=== PATIENT | female | born 1995 | race Caucasian/White ===

== ENCOUNTER 2020-05-16 04:53 | Outpatient (REF) | payer MEDICAID, SELFPAY ==
[2020-05-16 06:59] LABS: SARS COV2 PCR INHOUSE NEGATIVE (Negative)
== END 2020-05-16 04:54 | disposition home or self-care (01) ==
LOC: HO.LAB 04:53
PROVIDERS: Visit Provider Internal Medicine
DX: Z20.828 Contact with and (suspected) exposure to other viral communicable diseases (principal)
CPT/HCPCS: 87635

== ENCOUNTER 2020-05-21 06:13 | Outpatient (REF) | payer MEDICAID, SELFPAY ==
[2020-05-21 06:31] LABS: COVID-19 Test Negative (Negative)
== END 2020-05-21 06:14 | disposition home or self-care (01) ==
LOC: HO.LAB 06:13
PROVIDERS: Visit Provider Internal Medicine
DX: Z20.828 Contact with and (suspected) exposure to other viral communicable diseases (principal)
CPT/HCPCS: 87635

== ENCOUNTER 2020-06-12 14:10 | Outpatient (REF) | payer MEDICAID, SELFPAY ==
--- NOTE | 2020-06-12 | US_ITS ---
EXAMINATION: ULTRASOUND TRANSVAGINAL, PELVIC COMPLETE CLINICAL INFORMATION: Right lower quadrant pain. COMPARISON: Pelvic ultrasound dated 08/20/2016. TECHNIQUE: Multiple 2-D grayscale and color Doppler transabdominal and transvaginal pelvic ultrasound images were obtained. FINDINGS: Uterus: Anteverted/anteflexed measuring 11.7 x 4.8 x 6.5 cm with a volume of 191 cc. The endometrial stripe measures up to 0.8 cm without focal abnormality. The cervix is unremarkable. Mild free fluid is seen in the cul-de-sac. Right ovary: 3.4 x 2.1 x 2.9 cm. Several small anechoic follicles are seen. Color Doppler showed no abnormal vascular flow. Left ovary: 4.2 x 2.4 x 3.3 cm. Several small anechoic follicles are seen. An anechoic cyst measures 2.1 cm. Color Doppler interrogation showed no abnormal vascular flow. US/US transvaginal IMPRESSION: Unremarkable pelvic ultrasound. A causative abnormality for the patient's right lower quadrant pain was not visualized.
--- NOTE | 2020-06-12 | US_ITS ---
EXAMINATION: ULTRASOUND TRANSVAGINAL, PELVIC COMPLETE CLINICAL INFORMATION: Right lower quadrant pain. COMPARISON: Pelvic ultrasound dated 08/20/2016. TECHNIQUE: Multiple 2-D grayscale and color Doppler transabdominal and transvaginal pelvic ultrasound images were obtained. FINDINGS: Uterus: Anteverted/anteflexed measuring 11.7 x 4.8 x 6.5 cm with a volume of 191 cc. The endometrial stripe measures up to 0.8 cm without focal abnormality. The cervix is unremarkable. Mild free fluid is seen in the cul-de-sac. Right ovary: 3.4 x 2.1 x 2.9 cm. Several small anechoic follicles are seen. Color Doppler showed no abnormal vascular flow. Left ovary: 4.2 x 2.4 x 3.3 cm. Several small anechoic follicles are seen. An anechoic cyst measures 2.1 cm. Color Doppler interrogation showed no abnormal vascular flow. US/US pelvic complete IMPRESSION: Unremarkable pelvic ultrasound. A causative abnormality for the patient's right lower quadrant pain was not visualized.
== END 2020-06-12 14:11 | disposition home or self-care (01) ==
LOC: HO.US 14:10
DX: R10.31 Right lower quadrant pain (principal); N89.8 Other specified noninflammatory disorders of vagina
CPT/HCPCS: 76830; 76856

== ENCOUNTER 2020-06-24 06:46 | Outpatient (REF) | payer MEDICAID, SELFPAY ==
[2020-06-24 07:13] LABS: COVID-19 Test Positive (Negative)
== END 2020-06-24 06:47 | disposition home or self-care (01) ==
LOC: HO.EMPCOV 06:46
PROVIDERS: PCP Nurse Practitioner Primary Care; Visit Provider Internal Medicine
DX: Z20.828 Contact with and (suspected) exposure to other viral communicable diseases (principal)
CPT/HCPCS: 87635; C9803

== ENCOUNTER 2020-10-29 01:50 | Outpatient (REF) | payer MEDICAID, SELFPAY ==
[2020-10-29 02:17] LABS: Glucose Urine UA NEG (NEG); Leukocyte Esterase Urine NEG (NEG); Nitrite Urine NEG (NEG); PH 6.5 (5.0-8.0); Specific Gravity - Urine 1.025 (1.005-1.025); Urine Blood 1+ (NEG); Urine Ketones NEG (NEG); Urine Protein NEG (NEG-TRACE)
[2020-10-29 02:18] LABS: Appearance Urine CLOUDY; Color Urine YELLOW
[2020-10-29 02:35] LABS: Bacteria Urine 4+ /LPF; Mucus Urine 2+ /LPF; Squamous Epithelial Cell Urine TRACE /LPF; UACC CULT YES
== END 2020-10-29 01:51 | disposition home or self-care (01) ==
LOC: HO.LAB 01:50
PROVIDERS: PCP Nurse Practitioner Primary Care; Visit Provider Emergency Medicine Emergency Medical Services
DX: N39.0 Urinary tract infection, site not specified (principal)
CPT/HCPCS: 81001; 87086; 87088; 87186

== ENCOUNTER 2021-04-21 13:36 | Outpatient (REF) | payer MEDICAID, SELFPAY | END 2021-04-21 13:37 | disposition home or self-care (01) | LOC: HO.LAB 13:36 | PROVIDERS: PCP Nurse Practitioner Primary Care | DX: N39.0 Urinary tract infection, site not specified (principal) | CPT/HCPCS: 87086; 87088; 87186; 99202 ==

== ENCOUNTER 2021-05-26 05:29 | Outpatient (REF) | payer MEDICAID, SELFPAY ==
[2021-05-26 05:55] LABS: COVID-19 Test Negative (Negative); IDNOW Serial# 9DD0AD1C
== END 2021-05-26 05:30 | disposition home or self-care (01) ==
LOC: HO.LAB 05:29
PROVIDERS: Visit Provider Internal Medicine
DX: Z20.822 Contact with and (suspected) exposure to COVID-19 (principal)
CPT/HCPCS: 36415; 87635

== ENCOUNTER 2021-08-13 06:10 | Outpatient (REF) | payer OTHER, SELFPAY ==
[2021-08-13 06:41] LABS: COVID-19 Test Negative (Negative); IDNOW Serial# 9DD0AD1C
== END 2021-08-13 06:11 | disposition home or self-care (01) ==
LOC: HO.LAB 06:10
PROVIDERS: Visit Provider Internal Medicine
DX: Z20.822 Contact with and (suspected) exposure to COVID-19 (principal)
CPT/HCPCS: 87635

== ENCOUNTER 2023-09-04 22:52 | Outpatient (REF) | payer MEDICAID, SELFPAY ==
[2023-09-04 23:32] LABS: COVID-19 Test Positive (Negative); IDNOW Serial# 08D9AD1C; IDNOW Serial# 152EDE1D; Influenza A Negative (Negative); Influenza B2 Negative (Negative)
== END 2023-09-04 22:53 | disposition home or self-care (01) ==
LOC: HO.LAB 22:52
PROVIDERS: Visit Provider Internal Medicine
DX: R50.9 Fever, unspecified (principal)
CPT/HCPCS: 87502; 87635

== ENCOUNTER 2024-10-02 14:16 | Outpatient (REF) | payer MEDICAID, SELFPAY ==
--- OUTSIDE RECORDS SUMMARY | 2024-10-02 16:19 | XMS_ITS | Encounter Summary ---
Author Organization [facility] Address [address] [facility] [address] 7t [place] [address] Care Team Providers Care Fourth Hand Name Role Phone Eden Vallejo Primary Care Provider [phone] Encounter Details Date Type Department Care Team (Latest Contact Info) Description 10/02/2024 Travel Social History Tobacco Use Types Packs/Day Years Used Date Smoking Tobacco: Never Smokeless Tobacco: Never Alcohol Use Standard Drinks/Week Comments Not Currently 0 (1 standard drink = 0.6 oz pur e alcohol) Comments No Sex and Gender Information Value Date Recorded Sex Assigned at Female 05/25/2022 10:17 AM EDT Legal Sex Female 10:17 AM EDT Gender Identity Female 05/25/2022 10:17 AM EDT Sexual Orientation Straight 05/25/2022 10 :17 AM EDT documented as of this encounter Plan of Treatment Upcoming Encounters Date Type Department Care Team (Late st Contact Info) Description 12/25/2024 11:30 AM EDT Office Visit [facility] MEDICINE [address] [place] [address] Kimber Sahni CNM [address] [place] [address] documented as of this encounter Visit Diagnoses Not on filedocumented in this encounter Care Teams Fourth Hand Relationship Specialty Start Date End Date Eden Vallejo ANP [address] [place] [address] PCP - General Family Medicine 01/12/20 documented as of this encounter
--- OUTSIDE RECORDS SUMMARY | 2024-10-02 16:19 | XMS_ITS | Encounter Summary ---
Author Organization [facility] Address [address] [facility] 7t [place] [address] Care Team Providers Care Roof Bolter Operator Name Role Phone Eden Vallejo Primary Care Provider [phone] Encounter Details Date Type Department Care Team (Latest Contact Info) Description 09/14/2024 Travel Social History Tobacco Use Types Packs/Day Years Used Date Smoking Tobacco: Never Smokeless Tobacco: Never Alcohol Use Standard Drinks/Week Comments Yes 0 (1 standard drink = 0.6 oz pur e alcohol) Comments Unknown Sex and Gender Information Value Date Recorded Sex Assigned at Female 05/25/2022 10:17 AM EDT Legal Sex Female 10:17 AM EDT Gender Identity Female 05/25/2022 10:17 AM EDT Sexual Orientation Straight 05/25/2022 10 :17 AM EDT documented as of this encounter Plan of Treatment Upcoming Encounters Date Type Department Care Team (Late st Contact Info) Description 12/25/2024 11:30 AM EDT Office Visit [facility] MEDICINE [address] [place] [address] Kimber Sahni CNM [address] [place] [address] documented as of this encounter Visit Diagnoses Not on filedocumented in this encounter Care Teams Roof Bolter Operator Relationship Specialty Start Date End Date Eden Vallejo ANP [address] [place] [address] PCP - General Family Medicine 01/12/20 documented as of this encounter
--- OUTSIDE RECORDS SUMMARY | 2024-10-02 16:19 | XMS_ITS | Clinical Summary ---
Author Organization [employer] Address [address] [facility] 7t [place] [address] Care Team Providers Care Office Manager Receptionist Name Role Phone Eden Vallejo Primary Care Provider [phone] Allergies Active Allergy Reactions Criticality Noted Date Comments Promethazine 10/21/2016 Medications albuterol 108 (90 Base) MCG/ACT inhaler Inhale 2 puffs every 4 (four) hours. 0 Active cholecalciferol (Vitamin D-3) 1.25 MG (31728 UT) capsule Take 1 capsule once per week for 8-12 weeks 0 Active norelgestromin- ethinyl estradiol (Xulane) 150-35 MCG/24HR Apply 1 patch each week for 3 weeks, then have no patch for 1 week. Repeat 3 patch 3 5 Active doxycycline (Vibra-Tabs) 100 MG tablet take 1 tablet by oral route 2 times every day for 7 days 2 10/03/19 25 Discontinu ed(Therapy completed) doxycycline (Vibra-Tabs) 100 MG tablet Take 100 mg by mouth 2 times daily. 2 10/03/19 25 Discontinu ed(Therapy completed) fluconazole (Diflucan) 150 MG tablet take 1 tablet by oral route once, repeat if needed in 72 hours 2 10/03/19 25 Discontinu ed(Therapy completed) fluconazole (Diflucan) 150 MG tablet TAKE 1 TABLET BY ORAL ROUTE ONCE, REPEAT IF NEEDED IN 72 HOURS 2 10/03/19 25 Discontinu ed(Therapy completed) nitrofurantoin, macrocrystal-mo nohydrate, (Macrobid) 100 MG capsuleIndicati ons:Urinary frequency 100 mg 2 times a day x 5 days 10 capsule 3 10/03/19 25 Discontinu ed(Therapy completed) Active Problems No known active problems Encounters Date Type Department Care Team Description 10/02/2024 1:15 PM EDT Procedure Visit [facility] MEDICINE [address] [place] [address] Kimber Sahni CNM Cervical cancer screening (Primary Dx); Menorrhagia with regular cycle; Screening examination for venereal disease 10/02/2024 Travel 09/14/2024 Travel 08/25/2024 Telephone [facility] MEDICINE [address] [place], [place] [phone] Eden Vallejo ANP Appointment Request from Last 3 Months Immunizations Name Administration Dates Next Due DTaP 03/27/1995, 4,1993,07/29,1993 HPV, Quadrivalent 04/12/2014,08/16/2009 Hep B, Adolescent or Pediatric 1993,1993,1993 Hep B, adult 11/25/2018,06/24/2018,05/24/2018 Hib (HbOC) 06/26/1994, 4,1993,05/27 IPV 03/27/1995, 4,1993,05/27 Influenza injectable quadriv alent IIV4 with preservative 05/18/2018,05/18/2016 Influenza injectable quadriv alent preservative free 05/30/2020,05/26/2020,05/17/2019 Influenza, IIV3, injectable 04/12/2014,1 08/11/2004,05/29/2004,05/14 Influenza, intradermal, quad rivalent, preservative free 05/21/2017 MMR 03/27/1995,04/08/1994 Meningococcal MPSV4 06/10/2006 Moderna Covid-19 Vaccine 12+ 07/07/2021,06/09/20 21 TD (adult), 2 Lf tetanus tox oid, preservative free, adsorbed 08/25/2005 Tdap 11/22/2017,06/22/2017 Social History Tobacco Use Types Packs/Day Years Used Date Smoking Tobacco: Never Smokeless Tobacco: Never Tobacco Cessation:Counseling Given: Not Answered Alcohol Use Standard Drinks/Week Comments Not Currently 0 (1 standard drink = 0.6 oz pur e alcohol) Comments No Sex and Gender Information Value Date Recorded Sex Assigned at Female 05/25/2022 10:17 AM EDT Legal Sex Female 10:17 AM EDT Gender Identity Female 05/25/2022 10:17 AM EDT Sexual Orientation Straight 05/25/2022 10 :17 AM EDT Last Filed Vital Signs Vital Sign Reading Time Taken Comments Blood Pressure 125/80 10/02/2024 1:20 PM EDT Pulse 75 10/02/2024 1:20 PM EDT Temperature 36.5 ??C (97.7 ??F) 10/02/2024 1:20 PM ED T Respiratory Rate 20 10/02/2024 1:20 PM EDT Oxygen Saturation 99% 10/02/2024 1:20 PM EDT Inhaled Oxygen Concentration - - Weight 61.5 kg (135 lb 9.6 oz) 10/02/2024 1:20 P M EDT Height 160 cm (5' 3 ) 10/02/2024 1:20 PM EDT Body Mass Index 24.02 10/02/2024 1:20 PM EDT Plan of Treatment Upcoming Encounters Date Type Department Care Team (Late st Contact Info) Description 12/25/2024 11:30 AM EDT Office Visit [facility] MEDICINE [address] [place] [address] Kimber Sahni CNM [address] [place] [address] Health Maintenance Due Date Last Done Comments Depression Screening 1993 SDOH Screening 1993 Alcohol/Substance Use Screening 2005 HPV Vaccines (3 - 3-dose series) 07/05/2014 04/12/2014, 08/16/2009 HPV/Cotest 2023 Cervical Cancer Screening 09/06/2023 Pap Smear 09/06/2023 09/06/2020 COVID-19 Vaccine ( season) 2024 07/07/2021, 06/09/2021 Influenza Vaccine (#1) 2024 , 05/26/2020, 05/17/2019, Additional history exists Family Planning (PISQ) 10/02/2025 10/02/2024 Tobacco Screening 10/02/2025 10/02/2024 DTaP/Tdap/Td Vaccines (8 - Td or Tdap) 11/23/2027 11/22/2017, 06/22/2017, 08/25/2005, Additional history exists Zoster Vaccines (1 of 2) 2043 RSV Patients and Patients Aged 60 years or older (1 - 1-dose 75+ series) 2068 HIB Vaccines Completed 06/26/1994, 03/1994, 1993, Additional history exists IPV Vaccines Completed 03/27/1995, 03/1994, 1993, Additional history exists Meningococcal Vaccine Aged Out 06/10/2006 No hussein lacy eligible based on patient's age to complete this topic Hepatitis B Vaccines Completed 11/25/2018, 06/24/2018, 05/24/2018, Additional history exists HIV Screening Completed 09/17/2021, 10/2020, 01/31/2020 Hepatitis C Screening Completed 09/17/2021 Hepatitis A Vaccines Aged Out No long er eligible based on patient's age to complete this topic Pneumococcal Vaccine: Pediatrics (0 to 5 Years) and At-Risk Patients (6 to 49) Years) Aged Out No longer eligible based on patient's age to complete this topic RSV under 20 months Aged Out No longe r eligible based on patient's age to complete this topic Rotavirus Vaccines Aged Out No longer eligible based on patient's age to complete this topic Procedures Procedure Name Priority Date/Time Associated Diagnosis Comments ZZZ HISTORICAL HEPATITIS C AB W/REFL TO HCV RNA, QN, PCR Routine 09/17/2021 11:35 AM EST HIV 1/2 ANTIGEN/ANTIBODY, FOURTH GENERATION W/RFL Routine 09/17/2021 11:35 AM EST THINPREP PAP Routine 09/06/2020 12:00 AM EST from Last 3 Months or Most Recently Relevant to Health Maintenance Results * HEPATITIS C AB W/REFL TO HCV RNA, QN, PCR (09/17/2021 11:35 AM EST) HEPATITIS C ANTIBODY NON-REACT JOAO NON-REACT JOAO [facility] INDEX 0.03 <1.00 [facility] Comment: ?? HCV antibody was non-reactive. There is no laboratory ?? evidence of HCV infection. ?? In most cases, no further action is required. However, if recent HCV exposure is suspected, a test for HCV RNA (test code 60561) is suggested. ?? For additional information please refer to http://[employer]/faq/UAW30q1 (This link is being provided for informational/ educational purposes only.) ?? 09/17/2021 11:3 5 AM EST Pallavi MORALESP HISTORICAL/NON ORDERABLE LABS Final Result [facility] [address] * HIV 1/2 ANTIGEN/ANTIBODY,FOURTH GENERATION W/RFL (09/17/2021 11:35 AM EST) HIV-1/2 ANTIGEN AND ANTIBODIES, 4TH GENERATION W/ REFLEX NON-REACT JOAO NON-REACT JAOO [facility] Comment: HIV-1 antigen and HIV-1/HIV-2 antibodies were not detected. There is no laboratory evidence of HIV infection. ?? PLEASE NOTE: This information has been disclosed to you from records whose confidentiality may be protected by state law. ??If your state requires such protection, then the state law prohibits you from making any further disclosure of the information without the specific written consent of the person to whom it pertains, or as otherwise permitted by law. A general authorization for the release of medical or other information is NOT sufficient for this purpose. ? For additional information please refer to http://[employer]/faq/WLS494 (This link is being provided for informational/ educational purposes only.) ? The performance of this assay has not been clinically validated in patients less than 2 years old. ?? 09/17/2021 11:3 5 AM EST Pallavi Hu [address] REFEREE LAB BLOOD ORDERABLES Final Res ult Performing Organization Address [facility] Co de Phone Number [facility] [address] * THINPREP PAP (09/06/2020 12:00 AM EST) Clinical Information: None given [facility] COMMENT [facility]MENT [facility] Comment: EXPLANATORY NOTE: ? The Pap is a screening test for cervical cancer. It is ?? not a diagnostic test and is subject to false negative ?? and false positive results. It is most reliable when a ?? satisfactory sample, regularly obtained, is submitted ?? with relevant clinical findings and history, and when ?? the Pap result is evaluated along with historic and ?? current clinical information. ?? Account Associate : SEE COMMENT [facility] Comment: MPG, CT(ASCP) CT screening location: [address] ??[id number] Interpretation/R esult: Negative for intraepithelial lesion or malignancy. [facility] [facility] LMP: NONE [facility] Prev. BX: NONE [facility] Prev. PAP: NONE [facility] SOURCE: None given [facility] Statement Of Adequacy: SEE COMMENT [facility] Comment: Satisfactory for evaluation. Endocervical/transformation zone component present. Age and/or menstrual status not provided 09/06/2020 Eden ZAMORANO LAB PATHOLOGY ORDERABLES Final R esult Performing Organization Address [facility] Co de Phone Number [facility] [address] from Last 3 Months or Most Recently Relevant to Health Maintenance Insurance [employer] Care Teams Office Manager Receptionist Relationship Specialty Start Date End Date Eden Vallejo ANP [address] [place] [phone] PCP - General Family Medicine 01/12/20
--- OUTSIDE RECORDS SUMMARY | 2024-10-02 16:19 | XMS_ITS | Encounter Summary ---
Author Organization [employer] Address [address] [place] [address] 7t [place] [address] Care Team Providers Care Back Order Clerk Name Role Phone Genevieve Eden ZAMORANO Primary Care Provider [phone] Reason for Referral * Imaging (Urgent) - Authorized Specialty Diagnoses / Procedures Referred By Contac t Referred To Contact Radiology Diagnoses Menorrhagia with regular cycle Procedures Us Pelvis complete Kimber Sahni CNM [address] [place] [address] Phone: tel: fax: [address] Phone: tel: fax: Referral ID Status Reason Start Date Expiration Date V isits Requested Visits Authorized [id number] Authorized 10/02/2024 10/02/2025 1 1 * Imaging (Urgent) - Authorized Specialty Diagnoses / Procedures Referred By Contac t Referred To Contact Radiology Diagnoses Menorrhagia with regular cycle Procedures US Pelvis Transvaginal Kimber Sahni CNM [address] [place] [address] Phone: tel: fax: [address] Phone: tel: fax: Referral ID Status Reason Start Date Expiration Date V isits Requested Visits Authorized [id number] Authorized 10/02/2024 10/02/2025 1 1 Reason for Visit * Reason Comments Gynecologic Exam Encounter Details Date Type Department Care Team (Latest Contact Info) Description 10/02/2024 1:15 PM EDT Procedure Visit [facility] MEDICINE [address] [place] [address] Kimber Sahni CNM [address] [place] [address] Cervical cancer screening (Primary Dx); Menorrhagia with regular cycle; Screening examination for venereal disease Social History Tobacco Use Types Packs/Day Years [...] AM EDT documented as of this encounter Last Filed Vital Signs Vital Sign Reading [...] Mass Index 24.02 10/02/2024 1:20 PM EDT documented in this encounter Progress Notes * Kimber Sahni CNM - 10/02/2024 1:15 PM EDT Subjective Patient ID: Marino Martin is a 29 y.o. female who presents for pap Last visit with vt in 2020. Pap NIL 2020. History of recurrent UTIs, no recent UTIs. No vaginal/urinary symptoms. Has tubal ligation, happy with method. Notes heavier menses over past year, can soak pads/tampons in less than a hour. Monthly menses x 5-7 days. Heavy x 4 days. No intermenstrual bleeding. Notes occasional LLQ cramping, not correlated with menses. Pain resolves with ibuprofen. Ibuprofen not helpful for heavy menses. Notes occasional nosebleeds, no easy bruising or bleeding gums. Would like to discuss control to help with menses. No contraindications to any method. 1 AMAB partner x 2y, no safety concerns. Doesn't think she had STI testing with partner, agrees to pap based S TI testing today. Review of Systems HENT: Positive for nosebleeds. Genitourinary: Positive for menstrual problem. Negative for dyspareunia, dysuria, frequency, genital sores, hematuria, pelvic pain, urgency, vaginal bleeding, vaginal discharge and vaginal pain. No abnormal pap, no breast pain, no breast mass, no nipple discharge Hematological: Negative for adenopathy. Does not bruise/bleed easily. Objective BP 125/80 (BP Location: Left arm, Patient Position: Sitting, BP Cuff Size: Adult) Pulse 75 Temp97.7 ??F (36.5 ??C) (Temporal) Resp 20 Ht 5' 3 (1.6 m) Wt 135 lb 9.6 oz (61.5 kg) LMP 09/18/2024 (Exact Date) SpO2 99% BMI 24.02 kg/m?? Physical Exam Constitutional: Appearance: Normal appearance. Chest: Breasts: Right: Normal. No swelling, bleeding, inverted nipple, mass, nipple discharge, skin change or tenderness. Left: Normal. No swelling, bleeding, inverted nipple, mass, nipple discharge, skin change or tenderness. Genitourinary: General: Normal vulva. Labia: Right: No rash, tenderness, lesion or injury. Left: No rash, tenderness, lesion or injury. Vagina: Normal. No signs of injury and foreign body. No vaginal discharge, erythema, tenderness, bleeding or lesions. Cervix: No cervical motion tenderness, discharge, friability, lesion, erythema, cervical bleeding or eversion. Uterus: Normal. Not enlarged and not tender. Adnexa: Right adnexa normal. Right: No mass, tenderness or fullness. Left: Fullness present. No mass or tenderness. Comments: Slight fullness LLQ Lymphadenopathy: Upper Body: Right upper body: No supraclavicular or axillary adenopathy. Left upper body: No supraclavicular or axillary adenopathy. Neurological: Mental Status: She is alert. Psychiatric: Mood and Affect: Mood normal. Behavior: Behavior normal. Assessment/Plan Diagnoses and all orders for this visit: Cervical cancer screening - Pap Smear Cotest today, repeat 5 years if normal/HPV negative. Will contact with results. Menorrhagia with regular cycle - CBC; Future - TSH W/Reflex to FT4; Future - Iron And Total Iron Binding Capacity; Future - Ferritin; Future - US Pelvis Transvaginal; Future - Us Pelvis complete; Future New onset and worsening over the past year. Will check ultrasound and labs and contact with results. Discussed options to help lighten menses. Doesn't want a daily pill, interested in patch. Rx sent in. Side effects and danger signs reviewed. Patch check 3 months, but call if any concerns before then. Screening examination for venereal disease - STI testing add on (NG, CT, Trich) Pap based STI testing ordered. Other orders - norelgestromin-ethinyl estradiol (Xulane) 150-35 MCG/24HR; Apply 1 patch each week for 3 weeks, then have no patch for 1 week. Repeat documented in this encounter Plan of Treatment Upcoming Encounters Date Type Department Care Team (Late st Contact Info) Description 12/25/2024 11:30 AM EDT Office Visit [facility] MEDICINE [address] [place] [address] Kimber Sahni CNM [address] [place] [address] Scheduled Orders Name Type Priority Associated Diagnoses Orde r Schedule Pap Smear Pathology and Cytology Routine Cervical cancer screening Ordered: 10/02/2024 CBC Lab Routine Menorrhagia with regular cycle Expected: 10/02/2024 (Approximate), Expires: 10/02/2025 TSH W/Reflex to FT4 Lab Routine Menorrhagia with regular cycle Expected: 10/02/2024 (Approximate), Expires: 10/02/2025 Iron And Total Iron Binding Capacity Lab Routine Menorrhagia with regular cycle Expected: 10/02/2024, Expires: 10/02/2025 Ferritin Lab Routine Menorrhagia with regular cycle Expected: 10/02/2024, Expires: 10/02/2025 US Pelvis Transvaginal Imaging Urgent Menorrhagia with regular cycle Expected: 10/02/2024, Expires: 10/02/2025 Us Pelvis complete Imaging Urgent Menorrhagia with regular cycle Expected: 10/02/2024, Expires: 10/02/2025 STI testing add on (NG, CT, Trich) Pathology and Cytology Routine Screening examination for venereal disease Ordered: 10/02/2024 documented as of this encounter Visit Diagnoses Diagnosis Cervical cancer screening- Primary Screening for malignant neoplasm of the cervix Menorrhagia with regular cycle Screening examination for venereal disease documented in this encounter Care Teams Back Order Clerk Relationship Specialty Start Date End Date Eden Vallejo ANP [address] [place] [phone] PCP - General Family Medicine 01/12/20 documented as of this encounter
--- OUTSIDE RECORDS SUMMARY | 2024-10-02 16:19 | XMS_ITS | Encounter Summary ---
Author Organization [employer] Address [address] [place] [address] 7t [place] [address] Care Team Providers Care Marine Cargo Specialist Name Role Phone Eden Vallejo Primary Care Provider [phone] Reason for Visit * Reason Onset Date Comments Appointment Request 08/25/2024 Encounter Details Date Type Department Care Team (Late st Contact Info) Description 08/25/2024 Telephone [facility] MEDICINE [address] [place] [phone] Eden Vallejo ANP [address] [place], [place] [phone] Appointment Request Social History Tobacco Use Types Packs/Day Years [...] AM EDT documented as of this encounter Miscellaneous Notes * Telephone Encounter - Pradeep Martínez - 08/25/2024 12:51 PM EST Tc from pt requesting an appt for PAP smear with Kaitlyn. PT Contact: [phone] documented in this encounter Plan of Treatment Upcoming Encounters Date Type Department Care Team (Late Contact Info) Description 12/25/2024 11:30 AM EDT Office Visit [facility] MEDICINE [address] [place] [address] Kimber Sahni CNM [address] [place] [address] documented as of this encounter Visit Diagnoses Not on filedocumented in this encounter Care Teams Marine Cargo Specialist Relationship Specialty Start Date End Date Eden Vallejo ANP [address] [place] [address] PCP - General Family Medicine 01/12/20 documented as of this encounter
== END 2024-10-02 14:17 | disposition home or self-care (01) ==
LOC: HO.HHCL 14:16
PROVIDERS: Visit Provider Advanced Practice Midwife
DX: Z13.89 Encounter for screening for other disorder (principal)

== ENCOUNTER 2024-10-02 16:49 | Outpatient (REF) | payer MEDICAID, SELFPAY ==
[2024-10-02 16:20] LABS: Hematocrit 29.4 % (37.0-47.0); Hemoglobin 8.9 g/dl (12.0-16.0); Mean Corpuscular HGB Conc 30.3 g/dl (31.0-35.0); Mean Corpuscular Hemoglobin 22.7 pg (27.0-33.0); Mean Platelet Volume 10.3 fL (9.4-12.3); Platelet Count 270 X10*3/uL (160-400); Red Blood Count 3.92 X10*6/uL (4.20-5.50); Red Cell Distribution Width 14.5 % (11.0-16.0); White Blood Count 3.9 X10*3/uL (4.8-10.8)
[2024-10-02 16:42] LABS: Iron 13 mcg/dL (30-160); Percent Iron Saturation 4 % (15-50); Total Iron Binding Capacity 350 mcg/dL (228-428); Unsaturated Iron Binding 337 ug/dL
[2024-10-02 16:58] LABS: Ferritin 3 ng/mL (10-122); TSH reflex Free T4 1.32 uIU/mL (0.32-4.0)
--- OUTSIDE RECORDS SUMMARY | 2024-10-02 18:18 | XMS_ITS | Encounter Summary ---
Author Organization [facility] Address [address] [facility] 7t [place] [address] Care Team Providers Care Industrial Engineering Analyst Name Role Phone Eden Vallejo Primary Care Provider [phone] Encounter Details Date Type Department Care Team [...] Description 12/25/2024 11:30 AM EDT Office Visit [facility] MEDICINE [address] [place] [address] Kimber Sahni CNM [address] [place] [address] documented as of this encounter Visit Diagnoses Not on filedocumented in this encounter Care Teams Industrial Engineering Analyst Relationship Specialty Start Date End Date Eden Vallejo ANP [address] [place] [address] PCP - General Family Medicine 01/12/20 documented as of this encounter
--- OUTSIDE RECORDS SUMMARY | 2024-10-02 18:18 | XMS_ITS | Encounter Summary ---
Author Organization [employer] Address [address] [place] [address] 7t [place] [address] Care Team Providers Care Recruitment Manager Name Role Phone Eden Vallejo Primary Care Provider [phone] Reason for Visit * Reason Onset Date Comments Appointment Request 08/25/2024 Encounter Details Date Type Department Care Team (Late st Contact Info) Description 08/25/2024 Telephone [facility] [address] [place] [address] [phone] Eden Vallejo ANP [address] [place], [place] [phone] Appointment Request Social History Tobacco Use Types [...] for PAP smear with Kaitlyn. PT Contact: [phone] documented in this encounter Plan of Treatment Upcoming Encounters Date Type Department Care Team (Late Contact Info) Description 12/25/2024 11:30 AM EDT Office Visit [facility] [address] [place] [address] Kimber Sahni CNM [address] [place] [address] documented as of this encounter Visit Diagnoses Not on filedocumented in this encounter Care Teams Recruitment Manager Relationship Specialty Start Date End Date Eden Vallejo ANP [address] [place] [address] PCP - General Family Medicine 01/12/20 documented as of this encounter
--- OUTSIDE RECORDS SUMMARY | 2024-10-02 18:18 | XMS_ITS | Encounter Summary ---
Author Organization [facility] Address [address] [facility] 7t [place] [address] Care Team Providers Care Rug Washer Name Role Phone Eden Vallejo Primary Care Provider [phone] Encounter Details Date Type Department Care Team [...] Description 12/25/2024 11:30 AM EDT Office Visit [facility] [address] [place] [address] Kimber Sahni CNM [address] [place] [address] documented as of this encounter Visit Diagnoses Not on filedocumented in this encounter Care Teams Rug Washer Relationship Specialty Start Date End Date Eden Vallejo ANP [address] [place] [address] PCP - General Family Medicine 01/12/20 documented as of this encounter
--- OUTSIDE RECORDS SUMMARY | 2024-10-02 18:18 | XMS_ITS | Encounter Summary ---
Author Organization [employer] Address [address] [place] [address] 7t [place] [address] Care Team Providers Care Merchandise Appraiser Name Role Phone Genevieve Eden ZAMORANO Primary Care Provider [phone] Reason for Referral * Imaging (Urgent) - Authorized Specialty Diagnoses / Procedures Referred By Contac t Referred To Contact Radiology Diagnoses Menorrhagia with regular cycle Procedures Us Pelvis complete Kimber Sahni CNM [address] [place] [address] Phone: tel: fax: [address] Phone: tel: fax: Referral ID Status Reason Start Date Expiration Date V isits Requested Visits Authorized [id number] Authorized 10/02/2024 10/02/2025 1 1 * Imaging (Urgent) - Authorized Specialty Diagnoses / Procedures Referred By Contac t Referred To Contact Radiology Diagnoses Menorrhagia with regular cycle Procedures US Pelvis Transvaginal Kimber Sahni CNM [address] [place] [address] Phone: tel: fax: [address] Phone: tel: fax: Referral ID Status Reason Start Date Expiration Date V isits Requested Visits Authorized [id number] Authorized 10/02/2024 10/02/2025 1 1 Reason for Visit * Reason Comments Gynecologic Exam Encounter Details Date Type Department Care Team (Latest Contact Info) Description 10/02/2024 1:15 PM EDT Procedure Visit [facility] [address] [place] [address] Kimber Sahni CNM [address] [place] [address] Cervical cancer screening (Primary Dx); Menorrhagia with [...] who presents for pap Last visit with ut in 2020. Pap NIL 2020. History of [...] Description 12/25/2024 11:30 AM EDT Office Visit [facility] [address] [place] [address] Kimber Sahni CNM [address] [place] [address] Scheduled Orders Name Type Priority Associated Diagnoses Orde r Schedule Pap Smear Pathology and Cytology Routine Cervical cancer screening Ordered: 10/02/2024 US Pelvis Transvaginal Imaging Urgent Menorrhagia with regular cycle Expected: 10/02/2024, Expires: 10/02/2025 Us Pelvis complete Imaging Urgent Menorrhagia with regular cycle Expected: 10/02/2024, Expires: 10/02/2025 STI testing add on (NG, CT, Trich) Pathology and Cytology Routine Screening examination for venereal disease Ordered: 10/02/2024 documented as of this encounter Procedures Procedure Name Priority Date/Time Associated Diagnosis Comments TSH W/REFLEX TO FT4 Routine 10/02/2024 2 :19 PM EDT Menorrhagia with regular cycle IRON AND TOTAL IRON BINDING CAPACITY Routine 10/02/2024 2:19 PM EDT Menorrhagia with regular cycle CBC Routine 10/02/2024 2:19 PM EDT Menorrhagia with regular cycle FERRITIN Routine 10/02/2024 2:19 PM EDT Menorrhagia with regular cycle documented in this encounter Results * (ABNORMAL) Ferritin (10/02/2024 2:19 PM EDT) Ferritin 3(L) 10 - 122 ng/mL [facility] Blood Venous blood specimen / Unknown 10/02/2024 2:19 PM EDT 10/02/2024 4:02 PM EDT us Kimber Sahni [facility] BLOOD ORDERABLES Maritza l Result [facility] [address] [place] [phone] * (ABNORMAL) Iron And Total Iron Binding Capacity (10/02/2024 2:19 PM EDT) Iron 13(L) 30 - 160 mcg/dL [facility] Total Iron Binding Capacity 350 228 - 428 mcg/dL [facility] Percent Iron Saturation 4(L) 15 - 50 % [facility] Unsaturated Iron Binding 337 ug/dL [facility] Blood Venous blood specimen / Unknown 10/02/2024 2:19 PM EDT 10/02/2024 4:02 PM EDT [facility] Maritza l Result Performing Organization Address [facility] Co de Phone Number [facility] [address] [place] [phone] * TSH W/Reflex to FT4 (10/02/2024 2:19 PM EDT) [facility] TSH reflex Free T4 1.32 0.32 - 4.0 uIU/mL [facility] Blood Venous blood specimen / Unknown 10/02/2024 2:19 PM EDT 10/02/2024 4:02 PM EDT [facility] LAB BLOOD ORDERABLES Maritza l Result Performing Organization Address [facility] de Phone Number [facility] [address] [place] [phone] * (ABNORMAL) CBC (10/02/2024 2:19 PM EDT) [facility] White Blood Count 3.9(L) 4.8 - 10.8 X10*3/uL [facility] Red Blood Count 3.92(L) 4.20 - 5.50 X10*6/uL [facility] Hemoglobin 8.9(L) 12.0 - 16.0 g/dl [facility] Hematocrit 29.4(L) 37.0 - 47.0 % [facility] Mean Corpuscular Volume 75.0(L) 80.0 - 98.0 fL [facility] Mean Corpuscular Hemoglobin 22.7(L) 27.0 - 33.0 pg [facility] Mean Corpuscular HGB Conc 30.3(L) 31.0 - 35.0 g/dl [facility] Red Cell Distribution Width 14.5 11.0 - 16.0 % [facility] Platelet Count 270 160 - 400 X10*3/uL [facility] Mean Platelet Volume 10.3 9.4 - 12.3 fL [facility] NRBC Pct Auto 0.0 0.0 - 0.2 /100WBC [facility] NRBC Abs Auto 0.000 0.0 - 0.012 X10*3/uL [facility] Blood Venous blood specimen / Unknown 10/02/2024 2:19 PM EDT 10/02/2024 4:02 PM EDT us Kimber Sahni CN LAB BLOOD ORDERABLES Maritza l Result [facility] [address] [place] [phone] documented in this encounter Visit Diagnoses Diagnosis Cervical cancer screening- Primary Screening for malignant neoplasm of the cervix Menorrhagia with regular cycle Screening examination for venereal disease documented in this encounter Care Teams Merchandise Appraiser Relationship Specialty Start Date End Date Eden Vallejo ANP [address] [place] [address] PCP - General Family Medicine 01/12/20 documented as of this encounter
--- OUTSIDE RECORDS SUMMARY | 2024-10-02 18:18 | XMS_ITS | Clinical Summary ---
Author Organization [employer] Address [address] [facility] 7t [place] [address] Care Team Providers Care Rubber Press Tender Name Role Phone Eden Vallejo Primary Care Provider [phone] Allergies Active Allergy Reactions Criticality Noted Date Comments Promethazine 10/21/2016 Medications albuterol 108 (90 Base) MCG/ACT inhaler Inhale 2 puffs every 4 (four) hours. 0 Active cholecalciferol (Vitamin D-3) 1.25 MG (13800 UT) capsule Take 1 capsule once per [...] Description 10/02/2024 1:15 PM EDT Procedure Visit [facility] [address] [place] [address] Kimber Sahni CNM Cervical cancer screening (Primary Dx); Menorrhagia with regular cycle; Screening examination for venereal disease 10/02/2024 Travel 09/14/2024 Travel 08/25/2024 Telephone [facility] [address] [place], [place] [phone] Eden Vallejo ANP Appointment Request from Last [...] Description 12/25/2024 11:30 AM EDT Office Visit [facility] [address] [place] [address] Kimber Sahni CNM [address] [place] [address] Health Maintenance Due Date Last Done Comments [...] Procedure Name Priority Date/Time Associated Diagnosis Comments FERRITIN Routine 10/02/2024 2:19 PM EDT Menorrhagia with regular cycle IRON AND TOTAL IRON BINDING CAPACITY Routine 10/02/2024 2:19 PM EDT Menorrhagia with regular cycle TSH W/REFLEX TO FT4 Routine 10/02/2024 2 :19 PM EDT Menorrhagia with regular cycle CBC Routine 10/02/2024 2:19 PM EDT Menorrhagia with regular cycle ZZZ HISTORICAL HEPATITIS C AB W/REFL TO HCV RNA, QN, PCR Routine 09/17/2021 11:35 AM EST HIV 1/2 ANTIGEN/ANTIBODY, FOURTH GENERATION W/RFL Routine 09/17/2021 11:35 AM EST THINPREP PAP Routine 09/06/2020 12:00 AM EST from Last 3 Months or Most Recently Relevant to Health Maintenance Results * TSH W/Reflex to FT4 (10/02/2024 2:19 PM EDT) TSH reflex Free T4 1.32 0.32 - 4.0 uIU/mL [facility] Blood Venous blood specimen / Unknown 10/02/2024 2:19 PM EDT 10/02/2024 4:02 PM EDT Kimber Sahni [facility] BLOOD ORDERABLES Maritza l Result Performing Organization Address City/[facility]/ZIP Co de Phone Number [facility] [address] [place] [phone] * (ABNORMAL) Iron And Total Iron Binding Capacity (10/02/2024 2:19 PM EDT) Iron 13(L) 30 - 160 mcg/dL [facility] Total Iron Binding Capacity 350 228 - 428 mcg/dL [facility] Percent Iron Saturation 4(L) 15 - 50 % [facility] Unsaturated Iron Binding 337 ug/dL [facility] Blood Venous blood specimen / Unknown 10/02/2024 2:19 PM EDT 10/02/2024 4:02 PM EDT Kimber Sahni [facility] BLOOD ORDERABLES Maritza l Result [facility] [address] [place] [phone] * (ABNORMAL) CBC (10/02/2024 2:19 PM EDT) [facility] White Blood Count 3.9(L) 4.8 - 10.8 X10*3/uL [facility] Red Blood Count 3.92(L) 4.20 - 5.50 X10*6/uL [facility] Hemoglobin 8.9(L) 12.0 - 16.0 g/dl [facility] Hematocrit 29.4(L) 37.0 - 47.0 % [facility] Mean Corpuscular Volume 75.0(L) 80.0 - 98.0 fL [facility] Mean Corpuscular Hemoglobin 22.7(L) 27.0 - 33.0 pg [facility] Mean Corpuscular HGB Conc 30.3(L) 31.0 - 35.0 g/dl [facility] Red Cell Distribution Width 14.5 11.0 - 16.0 % [facility] Platelet Count 270 160 - 400 X10*3/uL [facility] Mean Platelet Volume 10.3 9.4 - 12.3 fL [facility] NRBC Pct Auto 0.0 0.0 - 0.2 /100WBC [facility] NRBC Abs Auto 0.000 0.0 - 0.012 X10*3/uL [facility] Blood Venous blood specimen / Unknown 10/02/2024 2:19 PM EDT 10/02/2024 4:02 PM EDT us Kimber [facility] LAB BLOOD ORDERABLES Maritza l Result [facility] [address] [place] [address] [phone] * (ABNORMAL) Ferritin (10/02/2024 2:19 PM EDT) Ferritin 3(L) 10 - 122 ng/mL [facility] Blood Venous blood specimen / Unknown 10/02/2024 2:19 PM EDT 10/02/2024 4:02 PM EDT us Kimber Sahni CNM LAB BLOOD ORDERABLES Maritza l Result [facility] [address] [place] [address] [phone] * HEPATITIS C AB W/REFL TO HCV RNA, QN, PCR (09/17/2021 11:35 AM EST) HEPATITIS C ANTIBODY NON-REACT JOAO NON-REACT JOAO [facility] INDEX 0.03 <1.00 [facility] Comment: ?? HCV antibody was non-reactive. There is no laboratory ?? evidence of HCV infection. ?? In most cases, no further action is required. However, if recent HCV exposure is suspected, a test for HCV RNA (test code 33975) is suggested. ?? For additional information please refer to http://education.Yeahka/faq/TOA61y8 (This link is being provided for informational/ educational purposes only.) ?? 09/17/2021 11:3 5 AM EST us Pallavi Hu TUNNEL FORM PLACING SUPERVISOR HISTORICAL/NON ORDERABLE LABS Final Result Performing Organization Address City/[facility]/ZIP Co de Phone Number [facility] [address] * HIV 1/2 ANTIGEN/ANTIBODY,FOURTH GENERATION W/RFL (09/17/2021 11:35 AM EST) HIV-1/2 ANTIGEN AND ANTIBODIES, 4TH GENERATION W/ REFLEX NON-REACT JOAO NON-REACT JOAO [facility] Comment: HIV-1 antigen and HIV-1/HIV-2 [...] ? For additional information please refer to http://education.Yeahka/faq/DHD010 (This link is being provided for informational/ educational purposes only.) ? The performance of this assay has not been clinically validated in patients less than 2 years old. ?? 09/17/2021 11:3 5 AM EST us Pallavi MORALESP LAB BLOOD ORDERABLES Final Res ult [facility] [address] [place] [address], * THINPREP PAP (09/06/2020 12:00 AM EST) [...] historic and ?? current clinical information. ?? Parks Worker : SEE COMMENT [facility] Comment: MPG, CT(ASCP) CT screening location: [address] ??[phone] Interpretation/R esult: Negative for intraepithelial lesion or malignancy. [facility] LMP: NONE [facility] Prev. BX: NONE [facility] Prev. PAP: NONE [facility] SOURCE: None given [facility] Statement Of Adequacy: SEE COMMENT [facility] Comment: Satisfactory for evaluation. Endocervical/transformation zone component present. Age and/or menstrual status not provided 09/06/2020 us Eden ZAMORANO LAB PATHOLOGY ORDERABLES Final R esult [facility] [address] from Last 3 Months or Most Recently Relevant to Health Maintenance Insurance C3 Care Teams Rubber Press Tender Relationship Specialty Start Date End Date Eden Vallejo ANP [address] [place] [phone] PCP - General Family Medicine 01/12/20
== END 2024-10-02 16:50 | disposition home or self-care (01) ==
LOC: HO.HHCLNP 16:49
PROVIDERS: Visit Provider Advanced Practice Midwife
DX: Z12.4 Encounter for screening for malignant neoplasm of cervix (principal); Z11.51 Encounter for screening for human papillomavirus (HPV); Z11.3 Encounter for screening for infections with a predominantly sexual mode of transmission; N92.0 Excessive and frequent menstruation with regular cycle
CPT/HCPCS: 82728; 83540; 84443; 85027; 87626; 88175

== ENCOUNTER 2024-10-31 15:14 | Outpatient (REF) | payer OTHER, SELFPAY ==
--- NOTE | ~2024-10-31 | US_ITS ---
EXAMINATION: US PELVIS CLINICAL INFORMATION: Menorrhagia COMPARISON: June 12, 2020. TECHNIQUE: Ultrasound of the pelvis is performed using both transabdominal and transvaginal transducers along with Doppler. Transvaginal imaging is performed due to inadequate visualization transabdominally. FINDINGS: Uterus: The uterus is anteverted and measures 10 x 6 x 7 cm. There is a 3 cm irregular shaped anechoic abnormality within the fundus of the uterus. No pole or a jokes sac. The double wall endometrial thickness is 12 mm. The uterus is smooth in contour and has normal myometrial echogenicity. No visible fibroid. Adnexa: Both ovaries are visualized. There is normal color flow to the adnexa. There is no ovarian torsion. Small amount of free fluid in the cul-de-sac. Right ovary measures 4 x 3 x 3 cm. Volume: 15 cc. There is a 2.4 cm anechoic structure. Left ovary measures 3 x 2 x 3 cm. Volume: 7 cc. US/US pelvic and transvaginal IMPRESSION: Concerning for an irregular intrauterine empty gestational sac in the correct clinical settings. Recommend correlation with the serial quantification beta-hCG. Probable corpus luteum, right ovary. No ovarian torsion. Recommend repeat pelvic ultrasound. Electronically signed by: Milton Ambrosio MD 10/31/2024 04:03 PM EDT
--- OUTSIDE RECORDS SUMMARY | 2024-10-31 18:13 | XMS_ITS | Encounter Summary ---
Author Organization [employer] Address [address] [facility] 7t [place] [address] Care Team Providers Care General Maintenance Technician Name Role Phone Eden Vallejo Primary Care Provider [phone] Encounter Details Date Type Department Care Team (Late st Contact Info) Description 10/31/2024 Orders Only [facility] [address] [place] [address] [phone] Kimber Sahni CNM [address] [place], [place] [phone] Abnormal pelvic ultrasound (Primary Dx) Social History Tobacco Use Types Packs/Day Years [...] Description 12/25/2024 11:30 AM EDT Office Visit [facility] [address] [place] [address] [phone] Kimber Sahni CNM [address] [place] [address] Scheduled Orders Name Type Priority Associated Diagnoses Orde r Schedule hCG, Total, Quantitative Lab STAT Abnormal pelvic ultrasound Expected: 10/31/2024 (Approximate), Expires: 10/31/2025 documented as of this encounter Visit Diagnoses Diagnosis Abnormal pelvic ultrasound- Primary documented in this encounter Care Teams General Maintenance Technician Relationship Specialty Start Date End Date Eden Vallejo ANP [address] [place] [address] PCP - General Family Medicine 01/12/20 documented as of this encounter
--- OUTSIDE RECORDS SUMMARY | 2024-10-31 18:13 | XMS_ITS | Clinical Summary ---
Author Organization [employer] Address [address] [facility] 7t [place] [address] Care Team Providers Care Sand Mill Operator Core Sand Name Role Phone Sanket Calixto Primary Care Provider [phone] Allergies Active Allergy Reactions Criticality Noted Date Comments Promethazine 10/21/2016 Medications albuterol 108 (90 Base) MCG/ACT inhaler Inhale 2 puffs every 4 (four) hours. 0 Active cholecalciferol (Vitamin D-3) 1.25 MG (68647 UT) capsule Take 1 capsule once per week for 8-12 weeks 0 Active norelgestromin- ethinyl estradiol (Xulane) 150-35 MCG/24HR Apply 1 patch each week for 3 weeks, then have no patch for 1 week. Repeat 3 patch 3 5 Active Ferrous Sulfate (iron) 325 (65 Fe) MG tablet Take 1 tablet (325 mg) by mouth every other day. 30 tablet 1 5 Active doxycycline (Vibra-Tabs) 100 MG tablet [...] Encounters Date Type Department Care Team Description 10/31/[address] [address] Rodrigue Elmore CNM 10/31/2024 Orders Only [address] [address] Rodrigue Elmore CNM Abnormal pelvic ultrasound (Primary Dx) 10/16/2024 Orders Only [address] [address] Rodrigue Elmore CNM Screening examination for venereal disease (Primary Dx) 10/13/[address] [address] Sanket Calixto ANP Lab Orders 10/10/[address] [address] Rodrigue Elmore CNM Results 10/09/[address] [address] Rodrigue Elmore CNM Results 10/06/2024 Population Health Risk Score [facility] [address] [place] [phone] Provider, Population Health Generic 10/03/2024 Orders Only [address] [address] Rodrigue Elmore CNM 10/02/2024 1:15 PM EDT Procedure Visit [address] [address] Rodrigue Elmore CNM Cervical cancer screening (Primary Dx); Menorrhagia with regular cycle; Screening examination for venereal disease 10/02/2024 Travel 09/14/2024 Travel 08/25/2024 Telephone [facility] [address] [place] [phone] Sanket Calixto ANP Appointment Request from Last 3 Months Immunizations Name Administration Dates Next Due DTaP 03/27/1995, 4,1993,07/29,1993 HPV, Quadrivalent 04/12/2014,08/16/2009 Hep B, Adolescent or Pediatric 1993,1993,1993 Hep B, adult 11/25/2018,06/24/2018,05/24/2018 Hib (HbO) 06/26/1994, 4,1993,05/27 IPV 03/27/1995, 4,1993,05/27 Influenza injectable [...] 11:30 AM EDT Office Visit [facility] [address] [place], [place] [phone] Rodrigue Elmore, [facility] [address] [place], [place] [phone] Health Maintenance Due Date Last Done Comments Depression Screening 1993 SDOH Screening 1993 Alcohol/Substance Use Screening 2005 HPV Vaccines (3 - 3-dose series) 07/05/2014 04/12/2014, 08/16/2009 COVID-19 Vaccine ( season) 2024 07/07/2021, 06/09/2021 Influenza Vaccine (#1) 2024 0, 05/26/2020, 05/17/2019, Additional history exists Family Planning (PISQ) 10/02/2025 10/02/2024 Tobacco Screening 10/02/2025 10/02/2024 DTaP/Tdap/Td Vaccines (8 - Td or Tdap) 11/23/2027 11/22/2017, 06/22/2017, 08/25/2005, Additional history exists Cervical Cancer Screening 10/02/2029 HPV/Cotest 10/02/2029 10/02/2024 Pap Smear 10/02/2029 10/02/2024, 09/06/2020 Zoster Vaccines (1 of 2) 2043 RSV [...] Procedure Name Priority Date/Time Associated Diagnosis Comments US PELVIS TRANSVAGINAL Urgent 10/31/2024 3:21 PM EDT Menorrhagia with regular cycle FERRITIN Routine 10/02/2024 2:19 PM EDT Menorrhagia with regular cycle IRON AND TOTAL IRON BINDING CAPACITY Routine 10/02/2024 2:19 PM EDT Menorrhagia with regular cycle TSH W/REFLEX TO FT4 Routine 10/02/2024 2 :19 PM EDT Menorrhagia with regular cycle CBC Routine 10/02/2024 2:19 PM EDT Menorrhagia with regular cycle CHLAMYDIA/N. GONORRHOEAE AND T. VAGINALIS RNA, QUAL,TMA Routine 10/02/2024 1:29 PM EDT Screening examination for venereal disease PAP SMEAR Routine 10/02/2024 1:29 PM EDT Cervical cancer screening HPV DNA, LOW/HIGH RISK Routine 10/02/2024 1:29 PM EDT [facility]Z HISTORICAL HEPATITIS C AB W/REFL TO HCV RNA, QN, PCR Routine 09/17/2021 11:35 AM EST HIV 1/2 ANTIGEN/ANTIBODY, FOURTH GENERATION W/RFL Routine 09/17/2021 11:35 AM EST from Last 3 Months or Most Recently Relevant to Health Maintenance Results * US Pelvis Transvaginal (10/31/2024 3:21 PM EDT) Anatomical Region Laterality Modality Pelvis Ultrasound 10/31/2024 3:21 PM EDT Narrative 10/31/2024 4:05 PM EDT ? [facility] ?[address] [facility] . ? [place] [address] ? Ultrasound Report ? Signed ? Patient: Marino Mahoney ? MR#: [id number] ? : 1995 ?Acct:[id number] ? Age/Sex: 29 / F ?ADM Date: 10/31/24 ? Loc: HO.HMGCX ? Attending Dr: Rodrigue Elmore CNM ? Ordering Physician: RODRIGUE ELMORE CNM ?? Date of Service: 10/31/24 ?? Procedure(s): US pelvic and transvaginal ?? Accession Number(s): [id number] ? cc: RODRGIUE ELMORE CNM; SANKET CALIXTO NP ? EXAMINATION: ? US PELVIS ? CLINICAL INFORMATION: ? Menorrhagia ? COMPARISON: ?? June 12, 2020. ? TECHNIQUE: ?? Ultrasound of the pelvis is performed using both transabdominal and ?? transvaginal transducers along with Doppler. Transvaginal imaging is ?? performed due to inadequate visualization transabdominally. ? FINDINGS: ?? Uterus: ?? The uterus is anteverted and measures 10 x 6 x 7 cm. ??There is a 3 cm ?? irregular shaped anechoic abnormality within the fundus of the uterus. ?? No pole or a jokes sac. ? The double wall endometrial thickness is 12 mm. ? The uterus is smooth in contour and has normal myometrial echogenicity. ?No visible fibroid. ? Adnexa: ?? Both ovaries are visualized. There is normal color flow to the adnexa. ?? There is no ovarian torsion. ??Small amount of free fluid in the ?? cul-de-sac. ? Right ovary measures 4 x 3 x 3 cm. Volume: 15 cc. There is a 2.4 cm ?? anechoic structure. ? Left ovary measures 3 x 2 x 3 cm. Volume: 7 cc. ? US/US pelvic and transvaginal ?? IMPRESSION: ?? Concerning for an irregular intrauterine empty gestational sac in the ?? correct clinical settings. Recommend correlation with the serial ?? quantification beta-hCG. ?? Probable corpus luteum, right ovary. ?? No ovarian torsion. ?? Recommend repeat pelvic ultrasound. ? Electronically signed by: ??Milton Ambrosio MD ??10/31/2024 04:03 PM ?? EDT ? Dictated By: ?Milton Hutchison MD ? Signed By: ?<Electronically signed by Milton Gómez MD in OV> ? 10/31/24 1603 ? DD/ 1521 ? TD/TT: 10/31/24 1545 ? Inspector Heating And Refrigeration: ? Procedure Note Magdaleno, Image - 10/31/2024 [facility] [address] [place] [address] [place] [address] Ultrasound Report Signed Patient: Marino Mahoney MR#: [id number] : 1995Acct:[id number] Age/Sex: 29 / FADM Date: 10/31/24 Loc: HO.HMGCX Attending Dr: Rodrigue Elmore CNM Ordering Physician: RODRIGUE ELMORE CNM Date of Service: 10/31/24 Procedure(s): US pelvic and transvaginal Accession Number(s): [id number] cc: RODRIGUE ELMORE CNM; SANKET CALIXTO NP EXAMINATION: US PELVIS CLINICAL INFORMATION: Menorrhagia COMPARISON: June 12, 2020. TECHNIQUE: Ultrasound of the pelvis is performed using both transabdominal and transvaginal transducers along with Doppler. Transvaginal imaging is performed due to inadequate visualization transabdominally. FINDINGS: Uterus: The uterus is anteverted and measures 10 x 6 x 7 cm. There is a 3 cm irregular shaped anechoic abnormality within the fundus of the uterus. No pole or a jokes sac. The double wall endometrial thickness is 12 mm. The uterus is smooth in contour and has normal myometrial echogenicity. No visible fibroid. Adnexa: Both ovaries are visualized. There is normal color flow to the adnexa. There is no ovarian torsion. Small amount of free fluid in the cul-de-sac. Right ovary measures 4 x 3 x 3 cm. Volume: 15 cc. There is a 2.4 cm anechoic structure. Left ovary measures 3 x 2 x 3 cm. Volume: 7 cc. US/US pelvic and transvaginal IMPRESSION: Concerning for an irregular intrauterine empty gestational sac in the correct clinical settings. Recommend correlation with the serial quantification beta-hCG. Probable corpus luteum, right ovary. No ovarian torsion. Recommend repeat pelvic ultrasound. Electronically signed by: Milton Ambrosio MD 10/31/2024 04:03 PM EDT Dictated By: Milton Hutchison MD Signed By: <Electronically signed by Milton Gómez MDin OV> 10/31/24 1603 DD/ 1521 TD/TT: 10/31/24 1545 Inspector Heating And Refrigeration: Rodrigue Elmore CNM IMG US PROCEDURES Final R esult * TSH W/Reflex to FT4 (10/02/2024 2:19 PM EDT) TSH reflex Free T4 1.32 0.32 - 4.0 uIU/mL [facility] Blood Venous blood specimen / Unknown 10/02/2024 2:19 PM EDT 10/02/2024 4:02 PM EDT Rodrigue Elmore CNM LAB BLOOD ORDERABLES Maritza l Result Performing Organization Address City/[facility]/ZIP Co de Phone Number [facility] [address] [place] [phone] [phone] * (ABNORMAL) Iron And Total Iron Binding Capacity (10/02/2024 2:19 PM EDT) [facility] Iron 13(L) 30 - 160 mcg/dL [facility] Total Iron Binding Capacity 350 228 - 428 mcg/dL [facility] Percent Iron Saturation 4(L) 15 - 50 % [facility] Unsaturated Iron Binding 337 ug/dL [facility] Blood Venous blood specimen / Unknown 10/02/2024 2:19 PM EDT 10/02/2024 4:02 PM EDT Rodrigue Elmore [facility] LAB BLOOD ORDERABLES Maritza l Result Performing Organization Address [facility] Co de Phone Number [facility] [address] [place] [address] [phone] * (ABNORMAL) CBC (10/02/2024 2:19 PM EDT) [facility] White Blood Count 3.9(L) 4.8 - 10.8 X10*3/uL [facility] Red Blood Count 3.92(L) 4.20 - 5.50 X10*6/uL [facility] Hemoglobin 8.9(L) 12.0 - 16.0 g/dl [facility] Hematocrit 29.4(L) 37.0 - 47.0 % [facility] Mean Corpuscular Volume 75.0(L) 80.0 - 98.0 fL [facility] Mean Corpuscular Hemoglobin 22.7(L) 27.0 - 33.0 pg [facility] Mean Corpuscular HGB Conc 30.3(L) 31.0 - 35.0 g/dl [facility] Red Cell Distribution Width 14.5 11.0 - 16.0 % [facility] Platelet Count 270 160 - 400 X10*3/uL [facility] Mean Platelet Volume 10.3 9.4 - 12.3 fL [facility] NRBC Pct Auto 0.0 0.0 - 0.2 /100WBC [facility] NRBC Abs Auto 0.000 0.0 - 0.012 X10*3/uL [facility] Blood Venous blood specimen / Unknown 10/02/2024 2:19 PM EDT 10/02/2024 4:02 PM EDT [facility] LAB BLOOD ORDERABLES Maritza l Result Performing Organization Address City/[facility]/ZIP Co de Phone Number [facility] [address] [place] [phone] * (ABNORMAL) Ferritin (10/02/2024 2:19 PM EDT) Ferritin 3(L) 10 - 122 ng/mL [facility] Blood Venous blood specimen / Unknown 10/02/2024 2:19 PM EDT 10/02/2024 4:02 PM EDT [facility] LAB BLOOD ORDERABLES Maritza l Result Performing Organization Address [facility]/ZIP Co de Phone Number [facility] [address] [place] [phone] * STI testing add on (NG, CT, Trich) (10/02/2024 1:29 PM EDT) Trichomonas (NAAT) [facility] CTNG Ref Lab [facility] Comment:TEST NOT PERFORMEDSp ecimen transport device didnot contain the collection swab. NG Ref Lab [facility] ThinPrep?? vial Cervix uteri structure / Unknown 10/02/2024 1:29 PM EDT 10/06/2024 12:49 PM EDT Narrative [facility] - 10/13/2024 1:24 PM EDT Collection Date: [id number] by: JUSTA Santos: Cervix Rodrigue Elmore [facility] LAB CYTOLOGY ORDERABLES F inal Result Performing Organization Address City/[facility]/ZIP Co de Phone Number [facility] [address] [place] [phone] * HPV DNA, Low/High Risk (10/02/2024 1:29 PM EDT) HPV High Risk Negative Negative [facility] HPV Genotype 16 Negative Negative [facility] HPV Genotype 18 Negative Negative [facility] Comment:HPV testing performe d at [facility] (CLIA#[id number]), [address] [place] [address].Testing for HPV was performed using the Angel TERI 6800system. The presence of HPV in the female genital tract isassociated with a number of diseases, including cervicalcarcinoma. The HPV DNA high risk pool tests for HPV 31, 33,35, 39, 45, 51, 52, 56, 58, 59, 66 and 68. The testing forHPV 16 and 18 genotypes has also been performed. A positiveresult indicates detection of nucleic acid sequences fromone or more subtypes, whereas a negative result indicatessuch sequences were not detected. 10/02/2024 1:29 PM EDT 10/03/2024 9:30 AM EDT Rodrigue Elmore [facility] LAB BLOOD ORDERABLES Maritza l Result Performing Organization Address City/[facility]/ZIP Co de Phone Number [facility] [address] [place] [address] [phone] * Pap Smear (10/02/2024 1:29 PM EDT) Swab Cervix uteri structure / Unknown 10/02/2024 1:29 PM EDT 10/03/2024 9:30 AM EDT Narrative [facility] - 10/16/2024 8:36 AM EDT ----- ------- Name: Marino Martin ? Age/Sex: 29/F ? : 1995 Unit#: [id number] ?? Attend Dr: RODRIGUE ELMORE CNM ?Re10/02/24 ?Status: DEP REF ? Location: HO.SAIRA ? Disch: ? ----- ------- SPEC : [id number] ? RECD: 10/03/24 ? STATUS: ??SOUT ? REQ NUM: [id number] ? MOHINI: 10/02/24-1328 ? SUBM DR: RODRIGUE ELMORE CNM ? ENTERED: ??10/03/24 ?SP TYPE: Pap Smr ?OTHR : ? ORDERED: ??Pap Smear ? Interpretation ?? Satisfactory for evaluation. ?? Negative for intraepithelial lesion or malignancy. ?? No endocervical cells seen. ? HPV High Risk: ??Negative ? HPV Genotyping 16: ??Negative ?? HPV Genotyping 18: ??Negative ?Clinical Information LMP: Unknown date Previous PAP test: 2020, WNL ? Material Received ?? ThinPrep-Cervical ----- ------- Signed (signature on file) SAM Arevalo (ASCP) 10/16/24 0836 ? ----- ------- ? END OF REPORT ? us Rodrigue [place] LAB CYTOLOGY ORDERABLES F inal Result [facility] [address] [place] [phone] * HEPATITIS C AB W/REFL TO HCV RNA, QN, PCR (09/17/2021 11:35 AM EST) HEPATITIS C ANTIBODY NON-REACT JOAO NON-REACT JOAO [facility] INDEX 0.03 <1.00 [facility] Comment: ?? HCV antibody was non-reactive. There is no laboratory ?? evidence of HCV infection. ?? In most cases, no further action is required. However, if recent HCV exposure is suspected, a test for HCV RNA (test code 49855) is suggested. ?? For additional information please refer to http://[employer]/faq/PMV77t9 (This link is being provided for informational/ educational purposes only.) ?? 09/17/2021 11:3 5 AM EST Pallavi Hu [facility] HISTORICAL/NON ORDERABLE LABS Final Result [facility] [address] * HIV 1/2 ANTIGEN/ANTIBODY,FOURTH GENERATION W/RFL (09/17/2021 11:35 AM EST) HIV-1/2 ANTIGEN AND ANTIBODIES, 4TH GENERATION W/ REFLEX NON-REACT JOAO NON-REACT JOAO [facility] Comment: HIV-1 antigen and HIV-1/HIV-2 [...] ? For additional information please refer to http://[employer]/faq/INK425 (This link is being provided for informational/ educational purposes only.) ? The performance of this assay has not been clinically validated in patients less than 2 years old. ?? 09/17/2021 11:3 5 AM EST us Pallavi Hu [employer] PROFESS[employer] LAB BLOOD ORDERABLES Final Res ult [facility] [address] from Last 3 Months or Most Recently Relevant to Health Maintenance Insurance [id number] C3 Care Teams Sand Mill Operator Core Sand Relationship Specialty Start Date End Date Sanket Calixto ANP [address] [place] [phone] PCP - General Family Medicine 01/12/20
--- OUTSIDE RECORDS SUMMARY | 2024-10-31 18:13 | XMS_ITS | Encounter Summary ---
Author Organization [employer] Address [address] [place] [address] Care Team Providers Care Director Of Teenage Activities Name Role Phone Eden Vallejo LONA Primary Care Provider [phone] Encounter Details Date Type Department Care Team ([facility] st Contact Info) Description 10/31/2024 Telephone [facility] [address] [place], [place] [phone] Kimber Sahni CNM [address] [place], [place] [phone] Social History Tobacco Use Types Packs/Day Years [...] encounter Miscellaneous Notes * Telephone Encounter - Kimber Sahni CNM - 10/31/2024 4:13 PM EDT Telephone call to Marino to review ultrasound findings, possible early IUP. LMP 10/13, normal and on time for her. Has tubal ligation, also using control patch for dysmenorrhea. Denies AUB or pelvic pain. Will get stat hcg and go from there. If negative, will review further with radiology to see if followup indicated. If positive, will need repeat hcg in 48h and options counseling. documented in this encounter Plan of Treatment Upcoming Encounters Date Type Department Care Team (Late st Contact Info) Description 12/25/2024 11:30 AM EDT Office Visit [facility] [address] [place] [address] Kimber Sahni CNM [address] [place], [place] [phone] documented as of this encounter Visit Diagnoses Not on filedocumented in this encounter Care Teams Director Of Teenage Activities Relationship Specialty Start Date End Date Eden Vallejo ANP [address] [place] [address] [phone] PCP - General Family Medicine 01/12/20 documented as of this encounter
--- OUTSIDE RECORDS SUMMARY | 2024-10-31 18:13 | XMS_ITS | Encounter Summary ---
Author Organization [employer] Address [address] [place] [address] 7t [place] [address] Care Team Providers Care Basketballs And Footballs Reverser Name Role Phone Eden Vallejo Primary Care Provider [phone] Reason for Visit * Reason Onset Date Comments Appointment Request 08/25/2024 Encounter Details Date Type Department Care Team (Late st Contact Info) Description 08/25/2024 Telephone [facility] [address] [place] [address] [phone] Eden Vallejo ANP [address] [place], [place] [phone] Appointment Request Social History Tobacco Use Types [...] for PAP smear with Kaitlyn. PT Contact: [phone] documented in this encounter Plan of Treatment Upcoming Encounters Date Type Department Care Team (Late Contact Info) Description 12/25/2024 11:30 AM EDT Office Visit [facility] [address] [place] [address] Kimber Sahni CNM [address] [place] [address] documented as of this encounter Visit Diagnoses Not on filedocumented in this encounter Care Teams Basketballs And Footballs Reverser Relationship Specialty Start Date End Date Eden Vallejo ANP [address] [place] [address] PCP - General Family Medicine 01/12/20 documented as of this encounter
[2024-10-31 19:08] LABS: HCG Quantitative < 2 mIU/mL
== END 2024-10-31 15:15 | disposition home or self-care (01) ==
LOC: HO.HMGCX 15:14
PROVIDERS: PCP Nurse Practitioner Primary Care; Visit Provider Advanced Practice Midwife
DX: N92.0 Excessive and frequent menstruation with regular cycle (principal); R93.89 Abnormal findings on diagnostic imaging of other specified body structures
CPT/HCPCS: 36415; 76830; 76856; 84702

== ENCOUNTER → 2024-10-31 15:18 | Outpatient (BNV) | payer OTHER, SELFPAY | PROVIDERS: PCP Nurse Practitioner Primary Care; Visit Provider Radiology Diagnostic Radiology | DX: N92.0 Excessive and frequent menstruation with regular cycle (principal) | CPT/HCPCS: 76830; 76856 ==

== ENCOUNTER 2024-10-31 16:27 | Outpatient (REF) | payer OTHER, SELFPAY ==
--- OUTSIDE RECORDS SUMMARY | 2024-10-31 19:05 | XMS_ITS | Clinical Summary ---
Author Organization [employer] Address [address] [facility] 7t [place] [address] Care Team Providers Care Machine Coremaker Name Role Phone Sanket aClixto Primary Care Provider [phone] Allergies Active Allergy Reactions Criticality Noted Date Comments Promethazine 10/21/2016 Medications albuterol 108 (90 Base) MCG/ACT inhaler Inhale 2 puffs every 4 (four) hours. 0 Active cholecalciferol (Vitamin D-3) 1.25 MG (17463 UT) capsule Take 1 capsule once per [...] Type Department Care Team Description 10/31/[address] [address] Rodrigue Elmore CNM 10/31/2024 Orders Only [address] [address] Rodrigue Elmore CNM Abnormal pelvic ultrasound (Primary Dx) 10/16/2024 Orders Only [address] [address] Rodrigue Elmore CNM Screening examination for venereal disease (Primary Dx) 10/13/[address] [address] Sanket Calixto ANP Lab Orders 10/10/[address] [address] Rodrigue Elmore CNM Results 10/09/[address] [address] Rodrigue Elmore CNM Results 10/06/2024 Population Health Risk Score [facility] (C3) Department [address] [place] [phone] Provider, Population Health Generic 10/03/2024 Orders Only [address] [address] Rodrigue Elmore CNM 10/02/2024 1:15 PM EDT Procedure Visit [address] [address] Rodrigue Elmore CNM Cervical cancer screening (Primary Dx); Menorrhagia with regular cycle; Screening examination for venereal disease 10/02/2024 Travel 09/14/2024 Travel 08/25/2024 Telephone [facility] [address] [place] [address] [phone] Sanket Calixto ANP Appointment Request from Last [...] Description 12/25/2024 11:30 AM EDT Office Visit [facility] MEDICINE [address] [place], [place] [phone] Rodrigue Elmore, [facility] [address] [place], [place] [phone] Health Maintenance Due Date Last Done Comments [...] EDT Narrative 10/31/2024 4:05 PM EDT ? [facility] Adult Primary Care ?[address] [facility] . ? [place] [address] ? Ultrasound Report ? Signed ? Patient: Marino Mahoney ? MR#: [id number] ? : 1995 ?Acct:[id number] ? Age/Sex: 29 / F ?ADM Date: 10/31/24 ? Loc: HO.HMGCX ? Attending Dr: Rodrigue Elmore CNM ? Ordering Physician: RODRIGUE ELMORE CNM ?? Date of Service: 10/31/24 ?? Procedure(s): US pelvic and transvaginal ?? Accession Number(s): [id number] ? cc: RODRIGUE ELMORE CNM; SANKET CALIXTO NP ? EXAMINATION: [...] DD/ 1521 ? TD/TT: 10/31/24 1545 ? Printer Maintainer: ? Procedure Note Magdaleno, Image - 10/31/2024 [facility] Adult Primary Care [address] [place] [address] [place] [address] Ultrasound Report Signed Patient: Marino Mahoney MR#: [id number] : 1995Acct:[id number] Age/Sex: 29 / FADM Date: 10/31/24 Loc: HO.HMGCX Attending Dr: Rodrigue Elmore CNM Ordering Physician: RODRIGUE ELMORE CNM Date of Service: 10/31/24 Procedure(s): US pelvic and transvaginal Accession Number(s): [id number] cc: RODRIGUE ELMORE CNM; SANKET CALIXTO NP [...] 10/31/24 1603 DD/ 1521 TD/TT: 10/31/24 1545 Printer Maintainer: Rodrigue Elmore CNM IMG US PROCEDURES Final R esult * TSH W/Reflex to FT4 (10/02/2024 2:19 PM EDT) TSH reflex Free T4 1.32 0.32 - 4.0 uIU/mL [facility] Blood Venous blood specimen / Unknown 10/02/2024 2:19 PM EDT 10/02/2024 4:02 PM EDT Rodrigue Elmore CNM LAB BLOOD ORDERABLES Maritza l Result Performing Organization Address City/[facility]/ZIP Co de Phone Number [facility] [address] [place] [phone] [phone] * (ABNORMAL) Iron And Total Iron Binding Capacity (10/02/2024 2:19 PM EDT) [facility] Iron 13(L) 30 - 160 mcg/dL [facility] Total Iron Binding Capacity 350 228 - 428 mcg/dL [facility] Percent Iron Saturation 4(L) 15 - 50 % [facility] Unsaturated Iron Binding 337 ug/dL [facility] Blood Venous blood specimen / Unknown 10/02/2024 2:19 PM EDT 10/02/2024 4:02 PM EDT Rodrigue Elmore [facility] LAB BLOOD ORDERABLES Maritza l Result Performing Organization Address [facility] Co de Phone Number [facility] [address] [place] [phone] [phone] * (ABNORMAL) CBC (10/02/2024 2:19 PM EDT) [facility] White Blood Count 3.9(L) 4.8 - 10.8 X10*3/uL [facility] Red Blood Count 3.92(L) 4.20 - 5.50 X10*6/uL [facility] Hemoglobin 8.9(L) 12.0 - 16.0 g/dl [facility] Hematocrit 29.4(L) 37.0 - 47.0 % [facility] Mean Corpuscular Volume 75.0(L) 80.0 - 98.0 fL [facility] Mean Corpuscular Hemoglobin 22.7(L) 27.0 - 33.0 pg [facility] Mean Corpuscular HGB Conc 30.3(L) 31.0 - 35.0 g/dl [facility] Red Cell Distribution Width 14.5 11.0 - 16.0 % [facility] Platelet Count 270 160 - 400 X10*3/uL [facility] Mean Platelet Volume 10.3 9.4 - 12.3 fL [facility] NRBC Pct Auto 0.0 0.0 - 0.2 /100WBC [facility] NRBC Abs Auto 0.000 0.0 - 0.012 X10*3/uL [facility] Blood Venous blood specimen / Unknown 10/02/2024 2:19 PM EDT 10/02/2024 4:02 PM EDT [facility] LAB BLOOD ORDERABLES Maritza l Result Performing Organization Address City/[facility]/ZIP Co de Phone Number [facility] [address] [place] [phone] * (ABNORMAL) Ferritin (10/02/2024 2:19 PM EDT) Ferritin 3(L) 10 - 122 ng/mL [facility] Blood Venous blood specimen / Unknown 10/02/2024 2:19 PM EDT 10/02/2024 4:02 PM EDT [facility] LAB BLOOD ORDERABLES Maritza l Result Performing Organization Address [facility]/ZIP Co de Phone Number [facility] [address] [place] [phone] * STI testing add on (NG, CT, Trich) (10/02/2024 1:29 PM EDT) Trichomonas (NAAT) [facility] CTNG Ref Lab [facility] Comment:TEST NOT PERFORMEDSp ecimen transport device didnot contain the collection swab. NG Ref Lab [facility] ThinPrep?? vial Cervix uteri structure / Unknown 10/02/2024 1:29 PM EDT 10/06/2024 12:49 PM EDT Narrative [facility] - 10/13/2024 1:24 PM EDT Collection Date: [id number] by: JUSTA Santos: Cervix Rodrigue Elmore [facility] LAB CYTOLOGY ORDERABLES F inal Result Performing Organization Address City/[facility]/ZIP Co de Phone Number [facility] [address] [place] [phone] * HPV DNA, Low/High Risk (10/02/2024 1:29 PM EDT) HPV High Risk Negative Negative [facility] HPV Genotype 16 Negative Negative [facility] HPV Genotype 18 Negative Negative [facility] Comment:HPV testing performe d at [facility] (CLIA#[id number]), [address] [place] [address].Testing for HPV was performed using the Angel [...] EDT 10/03/2024 9:30 AM EDT Rodrigue Elmore [facility] LAB BLOOD ORDERABLES Maritza l Result Performing Organization Address City/[facility]/ZIP Co de Phone Number [facility] [address] [place] [phone] * Pap Smear (10/02/2024 1:29 PM EDT) Swab Cervix uteri structure / Unknown 10/02/2024 1:29 PM EDT 10/03/2024 9:30 AM EDT Narrative [facility] - 10/16/2024 8:36 AM EDT ----- ------- Name: Marino Martin ? Age/Sex: 29/F ? : 1995 Unit#: [id number] ?? Attend Dr: RODRIGUE ELMORE CNM ?Re10/02/24 ?Status: DEP REF ? Location: HO.SAIRA ? Disch: ? ----- ------- SPEC : [id number] ? RECD: 10/03/24 ? STATUS: ??SOUT ? REQ NUM: [id number] ? MOHINI: 10/02/24-1328 ? SUBM DR: RODRIGUE [...] [place] LAB CYTOLOGY ORDERABLES F inal Result [facility] [address] [place] [address] [phone] * HEPATITIS C AB W/REFL TO HCV RNA, QN, PCR (09/17/2021 11:35 AM EST) HEPATITIS C ANTIBODY NON-REACT JOAO NON-REACT JOAO [facility] INDEX 0.03 <1.00 [facility] Comment: ?? HCV antibody was non-reactive. There is no laboratory ?? evidence of HCV infection. ?? In most cases, no further action is required. However, if recent HCV exposure is suspected, a test for HCV RNA (test code 42940) is suggested. ?? For additional information please refer to http://[employer]/faq/JPE58q3 (This link is being provided for informational/ educational purposes only.) ?? 09/17/2021 11:3 5 AM EST Pallavi Hu [employer] [facility] HISTORICAL/NON ORDERABLE LABS Final Result [facility] [address] * HIV 1/2 ANTIGEN/ANTIBODY,FOURTH GENERATION W/RFL (09/17/2021 11:35 AM EST) HIV-1/2 ANTIGEN AND ANTIBODIES, 4TH GENERATION W/ REFLEX NON-REACT JOAO NON-REACT JOAO [facility] Comment: HIV-1 antigen and HIV-1/HIV-2 [...] ? For additional information please refer to http://[employer]/faq/XPZ524 (This link is being provided for informational/ educational purposes only.) ? The performance of this assay has not been clinically validated in patients less than 2 years old. ?? 09/17/2021 11:3 5 AM EST us Pallavi Hu CORRECTIONAL SUBSTANCE ABUSE COUNSELOR LAB BLOOD ORDERABLES Final Res ult [facility] [address] from Last 3 Months or Most Recently Relevant to Health Maintenance Insurance [employer] Care Teams Machine Coremaker Relationship Specialty Start Date End Date Sanket Calixto ANP [address] [place] [phone] PCP - General Family Medicine 01/12/20
--- OUTSIDE RECORDS SUMMARY | 2024-10-31 19:05 | XMS_ITS | Encounter Summary ---
Author Organization [facility] [facility] [employer] Address [address] [place] [address] 7t [place] [address] Care Team Providers Care Superintendent Plant Name Role Phone Eden Vallejo Primary Care Provider [phone] Reason for Visit * Reason Onset Date Comments Appointment Request 08/25/2024 Encounter Details Date Type Department Care Team (Late st Contact Info) Description 08/25/2024 Telephone [facility] MEDICINE [address] [place] [address] [phone] Eden Vallejo ANP [address] [place], [place] [phone] Appointment Request Social History Tobacco Use Types [...] for PAP smear with Kaitlyn. PT Contact: [phone] documented in this encounter Plan of Treatment Upcoming Encounters Date Type Department Care Team (Late Contact Info) Description 12/25/2024 11:30 AM EDT Office Visit [facility] MEDICINE [address] [place] [address] Kimber Sahni CNM [address] [place] [address] documented as of this encounter Visit Diagnoses Not on filedocumented in this encounter Care Teams Superintendent Plant Relationship Specialty Start Date End Date Eden Valeljo ANP [address] [place] [address] PCP - General Family Medicine 01/12/20 documented as of this encounter
--- OUTSIDE RECORDS SUMMARY | 2024-10-31 19:05 | XMS_ITS | Encounter Summary ---
Author Organization [employer] Address [address] [facility] 7t [place] [address] Care Team Providers Care Analyst Market Intelligence Name Role Phone Eden Vallejo Primary Care Provider [phone] Encounter Details Date Type Department Care Team (Late st Contact Info) Description 10/31/2024 Orders Only [facility] MEDICINE [address] [place] [address] [phone] Kimber Sahni CNM [address] [place], [place] [phone] Abnormal pelvic ultrasound (Primary Dx) Social History [...] Description 12/25/2024 11:30 AM EDT Office Visit [facility] MEDICINE [address] [place] [address] [phone] Kimber Sahni CNM [address] [place] [address] Scheduled Orders Name Type Priority Associated Diagnoses Orde r Schedule hCG, Total, Quantitative Lab STAT Abnormal pelvic ultrasound Expected: 10/31/2024 (Approximate), Expires: 10/31/2025 documented as of this encounter Visit Diagnoses Diagnosis Abnormal pelvic ultrasound- Primary documented in this encounter Care Teams Analyst Market Intelligence Relationship Specialty Start Date End Date Eden Vallejo ANP [address] [place] [address] PCP - General Family Medicine 01/12/20 documented as of this encounter
--- OUTSIDE RECORDS SUMMARY | 2024-10-31 19:05 | XMS_ITS | Encounter Summary ---
Author Organization [employer] Address [address] [facility] [address] 7[address] [place] [address] Care Team Providers Care Conveyor Line Bakery Worker Name Role Phone Eden Vallejo LONA Primary Care Provider [phone] Encounter Details Date Type Department Care Team ([facility] st Contact Info) Description 10/31/2024 Telephone [facility] MEDICINE [address] [place], [place] [phone] Kimber Sahni CNM [address] [place], [place] [phone] Social History Tobacco Use Types Packs/Day Years [...] Description 12/25/2024 11:30 AM EDT Office Visit [facility] MEDICINE [address] [place] [address] Kimber Sahni CNM [address] [place], [place] [phone] documented as of this encounter Visit Diagnoses Not on filedocumented in this encounter Care Teams Conveyor Line Bakery Worker Relationship Specialty Start Date End Date Eden Vallejo ANP [address] [place] [address] [phone] PCP - General Family Medicine 01/12/20 documented as of this encounter
== END 2024-10-31 16:28 | disposition home or self-care (01) ==
LOC: HO.HHCL 16:27
PROVIDERS: Visit Provider Advanced Practice Midwife
DX: Z13.89 Encounter for screening for other disorder (principal)

== ENCOUNTER 2024-11-05 16:49 | Outpatient (REF) | payer OTHER, SELFPAY ==
--- NOTE | ~2024-11-05 | MR_ITS ---
CLINICAL HISTORY: abnormal uterine ultrasound, advised per radiology MR pelvis with and without gadolinium Comparison: Transvaginal pelvic ultrasound dated 0 10/31/2024. Findings: Anteverted uterus which demonstrate endometrial thickening measuring 1.6 cm with moderate amount of fluid within the endometrial cavity. No gestational sac is identified. Extensive dilated veins are noted surrounding the lower uterine segment is seen. Pelvic free fluid. A 2 cm thick wall cyst is noted within the right adnexa. IMPRESSION: Anteverted uterus with endometrial thickening measuring 1.6 cm with moderate fluid within the endometrial cavity. No gestational sac is identified. Short-term pelvic ultrasound with serial beta HCG is recommended for further evaluation. 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 A 2 cm cyst is noted within the right adnexa. This document has been electronically signed by: Pee Sánchez MD on 11/05/2024 19:22:22
[2024-11-05] MEDS: gadobutroL 7.5 ML VIAL IVPUSH (17:24)
== END 2024-11-05 16:50 | disposition home or self-care (01) ==
LOC: HO.MRI 16:49
PROVIDERS: PCP Nurse Practitioner Primary Care; Visit Provider Advanced Practice Midwife
DX: R93.89 Abnormal findings on diagnostic imaging of other specified body structures (principal)
CPT/HCPCS: 72197; A9585

== ENCOUNTER → 2024-11-05 16:57 | Outpatient (BNV) | payer OTHER, SELFPAY | PROVIDERS: PCP Nurse Practitioner Primary Care; Visit Provider Student in an Organized Health Care Education/Training Program | DX: N85.00 Endometrial hyperplasia, unspecified (principal); I86.2 Pelvic varices | CPT/HCPCS: 72197 ==

== ENCOUNTER 2025-05-18 09:26 | Outpatient (REF) | payer OTHER, SELFPAY ==
--- OUTSIDE RECORDS SUMMARY | 2025-05-18 10:20 | XMS_ITS | Encounter Summary ---
Author Organization [employer] Address [address] [place] [address] [address] [place] [address] Care Team Providers Care Chicken Cutter Name Role Phone Eden Vallejo Primary Care Provider [phone] Reason for Visit * Reason Onset Date Comments Appointment Request 08/25/2024 Encounter Details Date Type Department Care Team ([facility] st Contact Info) Description 08/25/2024 Telephone [facility] MEDICINE [address] [place] [address] Eden Vallejo ANP [address] [place] [address] Appointment Request Social History Tobacco Use Types [...] Miscellaneous Notes * Telephone Encounter - Pradeep Montelongos - 08/25/2024 12:51 PM EST Tc from pt requesting an appt for PAP smear with Kaitlyn. PT Contact: [phone] documented in this encounter Plan of Treatment Not on file documented as of this encounter Visit Diagnoses Not on filedocumented in this encounter Care Teams Chicken Cutter Relationship Specialty Start Date End Date Eden Vallejo ANP [address] [place] [address] PCP - General Family Medicine 01/12/20 documented as of this encounter
--- OUTSIDE RECORDS SUMMARY | 2025-05-18 10:20 | XMS_ITS | Encounter Summary ---
Author Organization [employer] Address [address] [place] [address] 7t [place] [address] Care Team Providers Care Rib Builder Name Role Phone Eden Vallejo Primary Care Provider [phone] Reason for Visit * Reason Comments Med Refill Encounter Details Date Type Department Care Team (Late st Contact Info) Description 04/17/2025 Refill [facility] MEDICINE [address] [place], [place] [phone] Kimber Sahni CNM [address] [place] [address] Social History Tobacco Use Types Packs/Day Years [...] as of this encounter Plan of Treatment Not on file documented as of this encounter Visit Diagnoses Not on filedocumented in this encounter Care Teams Rib Builder Relationship Specialty Start Date End Date Eden Vallejo ANP [address] [place] [address] PCP - General Family Medicine 01/12/20 documented as of this encounter
--- OUTSIDE RECORDS SUMMARY | 2025-05-18 10:20 | XMS_ITS | Clinical Summary ---
Author Organization [employer] Address [address] [place] [address] [address] [place] [address] Care Team Providers Care Agricultural Commodities Grader Name Role Phone Eden Vallejo LONA Primary Care Provider [phone] Allergies Active Allergy Reactions Criticality Noted Date Comments Promethazine 10/21/2016 Medications albuterol 108 (90 Base) MCG/ACT inhaler Inhale 2 puffs every 4 (four) hours. 07/03/2020 Active cholecalciferol (Vitamin D-3) 1.25 MG (53066 UT) capsule Take 1 capsule once per week for 8-12 weeks 01/31/2020 Active ferrous sulfate 325 (65 Fe) MG tablet TAKE 1 TABLET BY MOUTH EVERY OTHER DAY 30 tablet 02/19/2025 Active norelgestromin- ethinyl estradiol (Ortho-Evra) 150-35 MCG/24HR APPLY 1 PATCH EACH WEEK FOR 3 WEEKS, THEN HAVE NO PATCH FOR 1 WEEK. REPEAT 9 patch 03/19/2025 Active Active Problems No known active problems Encounters Date Type Department Care Team Description 04/17/2025 Refill [facility] [address] [place] [address] Rodrigue Elmore CNM 03/16/2025 Refill [facility] [address] [place] [address] Rodrigue Elmore CNM 03/16/2025 Refill [facility] [address] [place] [address] Rodrigue Elmore CNM 02/19/2025 Orders Only [facility] [address] [place] [address] Rodrigue Elmore CNM Other iron deficiency anemia (Primary Dx) 02/16/2025 Refill [facility] [address] [place] [address] Rodrigue Elmore CNM 02/15/2025 Refill [facility] [address] [place] [address] Rodrigue Elmore CNM from Last 3 Months Immunizations Immunization Administration Dates Next Due DTaP 03/27/1995, 4,1993,07/29,1993 [...] 0.6 oz pur e alcohol) Comments No Intention Date Recorded No desire to become (finding) 0 10/02/2024 Sex and Gender Information Value Date Recorded Sex Assigned at Female 05/25/2022 10:17 AM EDT Legal Sex Female 10:17 AM EDT Gender Identity Female 05/25/2022 10:17 AM EDT Sexual Orientation Straight 05/25/2022 10 :17 AM EDT Last Filed Vital Signs Vital Sign Reading Time Taken Comments Blood Pressure 125/80 10/02/2024 1:20 PM EDT Pulse 75 10/02/2024 1:20 PM EDT Temperature 36.5 C (97.7 F) 10/02/2024 1:20 PM EDT Respiratory Rate 20 10/02/2024 1:20 PM EDT Oxygen Saturation 99% 10/02/2024 1:20 PM EDT Inhaled Oxygen Concentration - - Weight 61.5 kg (135 lb 9.6 oz) 10/02/2024 1:20 P M EDT Height 160 cm (5' 3 ) 10/02/2024 1:20 PM EDT Body Mass Index 24.02 10/02/2024 1:20 PM EDT Plan of Treatment Health Maintenance Due Date Last Done Comments Depression Screening 1993 SDOH Screening 1993 Disability Screening 1993 Alcohol/Substance Use Screening 2005 HPV Vaccines (3 - 3-dose series) 07/05/2014 04/12/2014, 08/16/2009 COVID-19 Vaccine ( season) 2025 07/07/2021, 06/09/2021 Influenza Vaccine (#1) 2025 , 05/26/2020, 05/17/2019, Additional history exists Family [...] on patient's age to complete this topic Meningococcal B Vaccine Aged Out No l onger eligible based on patient's age to complete this topic Pneumococcal Vaccine: Pediatrics (0 to 5 Years) and At-Risk Patients (6 to 49) Years Aged Out No longer eligible based on patient's age to complete this topic RSV under 20 months Aged Out No longe r eligible based on patient's age to complete this topic Rotavirus Vaccines Aged Out No longer eligible based on patient's age to complete this topic Procedures Procedure Name Priority Date/Time Associated Diagnosis Comments HPV DNA, LOW/HIGH RISK Routine 10/02/2024 1:29 PM EDT PAP SMEAR Routine 10/02/2024 1:29 PM EDT Cervical cancer screening ZZZ HISTORICAL HEPATITIS C AB W/REFL TO HCV RNA, QN, PCR Routine 09/17/2021 11:35 AM EST HIV 1/2 ANTIGEN/ANTIBODY, FOURTH GENERATION W/RFL Routine 09/17/2021 11:35 AM EST from Last 3 Months or Most Recently Relevant to Health Maintenance Results * HPV DNA, Low/High Risk (10/02/2024 1:29 PM EDT) HPV High Risk Negative Negative [facility] HPV Genotype 16 Negative Negative [facility] HPV Genotype 18 Negative Negative [facility] Comment:HPV testing performe d at [facility] (CLIA#[id number]), [address] [place] [id number].Testing for HPV was performed using the Angel [...] 1:29 PM EDT 10/03/2024 9:30 AM EDT us Rodrigue Elmore CNM LAB BLOOD ORDERABLES Maritza sosa Result [facility] [address] [place] [phone] * Pap Smear (10/02/2024 1:29 PM EDT) Swab Cervix uteri structure / Unknown 10/02/2024 1:29 PM EDT 10/03/2024 9:30 AM EDT Narrative [facility] - 10/16/2024 8:36 AM EDT ----- ------- Name: Marino Martin Age/Sex: 29/F : 1995 Unit#: [id number] Attend Dr: RODRIGUE ELMORE CNM Re10/02/24 Status: DEP REF Location: [facility] Disch: ----- ------- SPEC : [id number] RECD: 10/03/24 STATUS: MATTEO BOTELLO NUM: [id number] MOHINI: 10/02/24-1329 [facility] DR: RODRIGUE ELMORE CNM ENTERED: 10/03/24 SP TYPE: Pap Smr OTHR DR: ORDERED: Pap Smear Interpretation Satisfactory for evaluation. Negative for intraepithelial lesion or malignancy. No endocervical cells seen. HPV High Risk: Negative HPV Genotyping 16: Negative HPV Genotyping 18: Negative Clinical Information LMP: Unknown date Previous PAP test: 2020, WNL Material Received ThinPrep-Cervical ----- ------- Signed (signature on file) SAM Arevalo (ASCP) 10/16/24 0836 ----- ------- END OF REPORT Rodrigue Elmore CNM LAB CYTOLOGY ORDERABLES F inal Result [facility] [address] [place] [address] [phone] * HEPATITIS C AB W/REFL TO HCV RNA, QN, PCR (09/17/2021 11:35 AM EST) HEPATITIS C ANTIBODY NON-REACT JOAO NON-REACT JOAO [facility] INDEX 0.03 <1.00 [facility] Comment: HCV antibody was non-reactive. There is no laboratory evidence of HCV infection. In most cases, no further action is required. However, if recent HCV exposure is suspected, a test for HCV RNA (test code 81135) is suggested. For additional information please refer to http://OpenCurriculum.Spredfast/faq/CNK57f7 (This link is being provided for informational/ educational purposes only.) 09/17/2021 11:3 5 AM EST Pallavi Hu [facility] HISTORICAL/NON ORDERABLE LABS Final Result Performing Organization Address City/[facility] Co de Phone Number [facility] [address] * HIV 1/2 ANTIGEN/ANTIBODY,FOURTH GENERATION W/RFL (09/17/2021 11:35 AM EST) HIV-1/2 ANTIGEN AND ANTIBODIES, 4TH GENERATION W/ REFLEX NON-REACT JOAO NON-REACT JOAO [facility] Comment: HIV-1 antigen and HIV-1/HIV-2 antibodies were not detected. There is no laboratory evidence of HIV infection. PLEASE NOTE: This information has been disclosed to you from records whose confidentiality may be protected by state law. If your state requires such protection, then the state law prohibits you from making any further disclosure of the information without the specific written consent of the person to whom it pertains, or as otherwise permitted by law. A general authorization for the release of medical or other information is NOT sufficient for this purpose. For additional information please refer to http://OpenCurriculum.Spredfast/faq/WMV419 (This link is being provided for informational/ educational purposes only.) The performance of this assay has not been clinically validated in patients less than 2 years old. 09/17/2021 11:3 5 AM EST us Pallavi Georgede SAND DIGGER LAB BLOOD ORDERABLES Final Res ult [facility] [address] [place] [address], from Last 3 Months or Most Recently Relevant to Health Maintenance Insurance [employer]SN [employer] Care Teams Agricultural Commodities Grader Relationship Specialty Start Date End Date Eden Vallejo ANP [address] [place] [address] PCP - General Family Medicine 01/12/20
--- OUTSIDE RECORDS SUMMARY | 2025-05-18 10:20 | XMS_ITS | Clinical Summary ---
Author Organization [place] [id number] Cherrie sosa [facility] Building Address [address] [place] [phone] Phone Care Team Providers Care Components Engineer Name Role Phone Physician, No Pcp Primary Care Provider Unavaila ble Social History Tobacco Use Types Packs/Day Years Used Date Smoking Tobacco: Never Assessed Comments Unknown Sex and Gender Information Value Date Recorded Sex Assigned at Not on file Legal Sex Female 8:58 PM EST Gender Identity Not on file Sexual Orientation Not on file Plan of Treatment Health Maintenance Due Date Last Done Comments HPV Vaccines (3 - 3-dose series) 07/05/2014 04/12/2014, 08/16/2009 Hepatitis C Screening 08/20/2023 Social Influencers of Health Screening 08/20/2023 Depression Screening 07/26/2024 COVID-19 Vaccine ( season) 2025 07/07/2021, 06/09/2021 Influenza Vaccine (#1) 2025 , 05/17/2019, 05/18/2018, Additional history exists Cervical Cancer Screening: Pap Smear 10/03/2027 10/02/2024 DTaP,Tdap,and Td Vaccines (9 - Td or Tdap) 11/23/2027 11/22/2017, 06/22/2017, 07/16/2013, Additional history exists RSV Immunization Adult Patients (1 - 1-dose 75+ series) 2068 HIB Vaccines Completed 06/26/1994, 03/1994, 1993, Additional history exists IPV Vaccines Completed 03/27/1995, 03/1994, 1993, Additional history exists MMR Vaccines Completed 03/27/1995, 04/08/1994 Meningococcal ACWY Vaccine Aged Out 06/10/2006 N o longer eligible based on patient's age to complete this topic Hepatitis B Vaccines Completed 11/25/2018, 06/24/2018, 05/24/2018, Additional history exists HIV Screening Completed 09/17/2021 Hepatitis A Vaccines Aged Out No long er eligible based on patient's age to complete this topic Meningococcal B Vaccine Aged Out No l onger eligible based on patient's age to complete this topic Pneumococcal Vaccine: Pediatrics (0 to 5 Years) and At-Risk Patients (6 to 49 Years) Aged Out No longer eligible based on patient's age to complete this topic RSV Immunization Patients Under 20 months Aged Out No longer eligible based on patient's age to complete this topic Varicella Vaccines Aged Out No longer eligible based on patient's age to complete this topic Insurance [employer] Care Teams Components Engineer Relationship Specialty Start Date End Date Physician, No Pcp PCP - General 01/01/25
--- OUTSIDE RECORDS SUMMARY | 2025-05-18 10:20 | XMS_ITS | Encounter Summary ---
Author Organization [employer] Address [address] [place] [address] [address] [place] [address] Care Team Providers Care Inspector Air Carrier Name Role Phone Eden Vallejo Primary Care Provider Reason for Visit * Reason Comments Med Refill Encounter Details Date Type Department Care Team (Late st Contact Info) Description 02/13/2025 Refill [facility] MED[facility]INE [address] [place], [place] [phone] Kimber Sahni CNM [address] [place] [address] Social History Tobacco Use Types Packs/Day Years [...] on filedocumented in this encounter Care Teams Inspector Air Carrier Relationship Specialty Start Date End Date Eden Vallejo ANP [address] [place] [address] PCP - General Family Medicine 01/12/20 documented as of this encounter
[2025-05-18 11:57] LABS: Hematocrit 33.2 % (37.0-47.0); Hemoglobin 9.8 g/dl (12.0-16.0); Mean Corpuscular HGB Conc 29.5 g/dl (31.0-35.0); Mean Corpuscular Hemoglobin 21.9 pg (27.0-33.0); Mean Corpuscular Volume 74.3 fL (80.0-98.0); NRBC Abs Auto 0.000 X10*3/uL (0.0-0.012); NRBC Pct Auto 0.0 /100WBC (0.0-0.2); Platelet Count 286 X10*3/uL (160-400); Red Blood Count 4.47 X10*6/uL (4.20-5.50); White Blood Count 5.4 X10*3/uL (4.8-10.8)
[2025-05-18 12:19] LABS: Blood Urea Nitrogen 9 mg/dL (9-16); Estimated Glomerular Filt Rate > 60; Iron 60 mcg/dL (30-160); Percent Iron Saturation 15 % (15-50); Total Iron Binding Capacity 402 mcg/dL (228-428); Unsaturated Iron Binding 342 ug/dL
[2025-05-18 12:40] LABS: Ferritin 8 ng/mL (10-122)
== END 2025-05-18 09:27 | disposition home or self-care (01) ==
LOC: HO.HHCL 09:26
PROVIDERS: PCP Nurse Practitioner Primary Care; Visit Provider Advanced Practice Midwife
DX: Z01.812 Encounter for preprocedural laboratory examination (principal); D50.8 Other iron deficiency anemias
CPT/HCPCS: 36415; 82565; 82728; 83540; 84520; 85027

== ENCOUNTER 2025-07-24 10:02 | Outpatient (REF) | payer OTHER, SELFPAY ==
[2025-07-24 22:49] LABS: Bacterial Vaginosis PCR NEGATIVE (Negative); Candida Group PCR DETECTED (Not Detect); Candida glab krusei PCR NOT DETECTED (Not Detect); Trichomonas vaginalis PCR NOT DETECTED (Not Detect)
[2025-07-24 23:20] LABS: CT PCR NOT DETECTED (Not Detect.); NG PCR NOT DETECTED (Not Detect.)
== END 2025-07-24 10:03 | disposition home or self-care (01) ==
LOC: HO.LNP 10:02
PROVIDERS: PCP Nurse Practitioner Primary Care; Visit Provider Advanced Practice Midwife
DX: N83.201 Unspecified ovarian cyst, right side (principal); N92.0 Excessive and frequent menstruation with regular cycle; D64.9 Anemia, unspecified; Z20.2 Contact with and (suspected) exposure to infections with a predominantly sexual mode of transmission; Z98.51 Tubal ligation status
CPT/HCPCS: 81515; 87491; 87591; 99202

== ENCOUNTER 2025-07-24 10:02 | Outpatient (AMB) | payer OTHER, SELFPAY ==
[2025-07-24 10:11] VITALS: BP 120/76; BMI 24.1
--- NOTE | 2025-07-24 10:11 | A.OFFVIS_ITS ---
Vital Signs 07/24/25 10:11 Height 5 ft 3 in Weight 136 lb BMI 24.1 BP 120/76 Blood Pressure Location Rt brachial Position Sitting Intake Visit Reasons: Amenorrhea w/ regular cycle/DO NOT RS Allergies promethazine (Phenergan) Allergy (Unknown, Verified 07/24/25 10:21) Swelling From PHENERGAN Allergy (Unknown, Uncoded 07/24/25 10:21) DIFFICULTY BREATHING phenergan Allergy (Unknown, Uncoded 07/24/25 10:21) swelling Medication List - Last Reconciled 07/24/25 by Rosemary Cho CNM No Known Home Meds Is last menstrual period known: Yes Last menstrual period: 07/12/25 HPI HPI Amenorrhea w/ regular cycle/DO NOT RS: Details: Patient is listed here as a visit for amenorrhea with regular cycles. She says she is being referred from the [facility] there were no referral records in the system in the place where referrals would be placed. She was seen in October and has been conversing with her provider at the [facility] by portal and she was seen because her periods have been very very heavy but they are very regular she had a tubal ligation after the of her 3rd child all 3 of her children were born by at [facility] there ages 12 12 and 6. She used a Mirena IUD between 2 of her children and did well with it until it became uncomfortable and it then it was removed and she got . She actually thinks a Mirena IUD would be beneficial to her to help her with her periods and that is what she was seeking She said that she had an ultrasound that was done that showed a gestational sac but it was empty and the test was negative so then she had an MRI 5 days later which did not show anything but there was a thickened cyst that was seen. She said that she was waiting for this appointment and it get getting put off. Her periods continue to be regular they are not very long but they are very very heavy she thinks an IUD would help her she does not recall having any other negative side effects from the Mirena IUD when she had it. She did try the patch in October but did not like how she felt on it and she only used it for couple of months. She just had blood work done in April and was told she is a little bit anemic and was told to take iron but she has not actually been taking it.. [facility] History (Updated 07/24/25 @ 11:41 by Rosemary Cho CNM) UTI (urinary tract infection) Surgical History (Updated 07/24/25 @ 11:37 by Rosemary Cho CNM) Hx of tubal ligation H/O umbilical hernia repair Hx of appendectomy H/O section Social History (Updated 07/24/25 @ 10:23 by Radha Nieves [facility]) Alcohol intake: current Alcohol intake frequency: a few times a month Patient Tobacco Use Status: Never used Tobacco Female Reproductive History Menstrual Age of Menarche: 13 Duration of menses: 3-5 days Date of last menstrual period: 07/12/25 control method: none Total pregnancies: 3 Number of Living Children: 3 Date of last pap smear: 10/03/24 History of abnormal pap smear: No History of STI: No Physical Exam Vital Signs: Last Vital Signs BP 120/76 07/24/25 10:11 BMI result Body Mass Index 24.1 Other: External exam within normal limits patient is nontender Vagina pink and moist with watery clear whitish discharge consistent with recent ovulation or circum ovulation. Cervix is pink healthy appearing. Cervix long close thick mobile nontender uterus midposition mobile nontender adnexa nontender nonenlarged very good tone with Kegel. External Female Exam: normal external appearance Speculum Exam - Vagina: normal appearance of the vagina and normal vaginal discharge Speculum Exam - Cervix: normal appearance of the cervix Bimanual exam- vagina & uterus: normal bimanual exam, uterine size normal, consistency normal, uterine mobility normal, uterine shape normal and non-tender Bimanual Exam- Adnexa, other: normal adnexae, no masses and No adnexal tenderness Results Reviewed Results Reviewed: Name: Marino Mahoney Age/Sex: 30/F : 1995 Unit#: [id number] Attend Dr: KIMBER ELMORE CNM Re05/18/25 Status: DEP REF Location: [facility] Disch: SPEC : [id number] MOHINI: 05/18/25 STATUS: COMP REQ : [id number] RECD: 05/18/[address]: KIMBER ELMORE CNM COMP: 05/18/25 ENTERED: 05/18/[address]: SANKET CALIXTO NP ORDERED: CBC No Diff Test Result Flag Reference WBC 5.4 4.8-10.8 X10*3/uL RBC 4.47 4.20-5.50 X10*6 /uL HGB 9.8 L 12.0-16.0 g/dl HCT 33.2 L 37.0-47.0 % MCV 74.3 L 80.0-98.0 fL MCH 21.9 L 27.0-33.0 pg MCHC 29.5 L 31.0-35.0 g/dl RDW 16.1 H 11.0-16.0 % PLT 286 160-400 X10*3/uL MPV 10.2 9.4-12.3 fL NRBC Pct Auto 0.0 0.0-0.2 /100WBC NRBC Abs Auto 0.000 0.0-0.012 X10*3/uL END OF REPORT [facility] [place] [address] Ultrasound Report Signed Patient: Marino Mahoney MR#: [id number] : 1995 Acct:[id number] Age/Sex: 29 / F ADM Date: 10/31/24 [facility] Attending Dr: Kimber Elmore CNM Ordering Physician: KIMBER ELMORE CNM Date of Service: 10/31/24 Procedure(s): US pelvic and transvaginal Accession Number(s): [id number] cc: KIMBER ELMORE CNM; SANKET CALIXTO NP~ EXAMINATION: US PELVIS CLINICAL INFORMATION: Menorrhagia COMPARISON: June 12, 2020. TECHNIQUE: Ultrasound of the pelvis is performed using both transabdominal and transvaginal transducers along with Doppler. Transvaginal imaging is performed due to inadequate visualization transabdominally. FINDINGS: Uterus: The uterus is anteverted and measures 10 x 6 x 7 cm. There is a 3 cm irregular shaped anechoic abnormality within the fundus of the uterus. No pole or a jokes sac. The double wall endometrial thickness is 12 mm. The uterus is smooth in contour and has normal myometrial echogenicity. No visible fibroid. Adnexa: Both ovaries are visualized. There is normal color flow to the adnexa. There is no ovarian torsion. Small amount of free fluid in the cul-de-sac. Right ovary measures 4 x 3 x 3 cm. Volume: 15 cc. There is a 2.4 cm anechoic structure. Left ovary measures 3 x 2 x 3 cm. Volume: 7 cc. US/US pelvic and transvaginal IMPRESSION: Concerning for an irregular intrauterine empty gestational sac in the correct clinical settings. Recommend correlation with the serial quantification beta-hCG. Probable corpus luteum, right ovary. No ovarian torsion. Recommend repeat pelvic ultrasound. Electronically signed by: Milton Ambrosio MD 10/31/2024 04:03 PM EDT RP Dictated By: Milton Hutchison MD Signed By: <Electronically signed by Milton Gómez MD in OV> 10/31/24 1603 DD/ 1521 TD/TT: 10/31/24 1545 Aperture Mask Etcher: RUN: 07/24/25 1044 PAGE 1 [facility] [address] [place] [id number] Reinforcing Steel Worker: Inocencio Sanchez M.D. Specimen Inquiry Name: Marino Mahoney Age/Sex: 29/F : 1995 Unit#: [id number] Attend Dr: KIMBER ELMORE CNM Re10/31/24 Status: DEP REF Location: [facility] Disch: SPEC : [id number] MOHINI: 10/31/24 STATUS: COMP REQ : [id number] RECD: 10/31/[address]: KIMBER ELMORE CNM COMP: 10/31/24 ENTERED: 10/31/[address]: SANKET CALIXTO NP ORDERED: HCG Quant Test Result Flag Reference HCG Quant < 2 mIU/mL Weeks post LMP Approximate hCG (Last Menstrual Period) Range (mIU/ml) 3 - 4 weeks 9 - 130 4 - 5 weeks 75 - 2,600 5 - 6 weeks 850 - 20,800 6 - 7 weeks 4000 - 100,200 7 - 12 weeks 11,500 - 289,000 12 - 16 weeks 18,300 - 137,000 16 - 29 weeks (2nd trimester) 1,400 - 53,000 29 - 41 weeks (3rd trimester) 940 - 60,000 The Erickson B-hCG assay is used for the early detection of ; it cannot be used to diagnose any condition unrelated to . If a B-hCG level is not supported by the clinical evidence, results should be confirmed by an alternative method (qualitative urine hCG, for example). END OF REPORT Patient: Marino Mahoney MR#: [id number] : 1995 Acct:[id number] Age/Sex: 29 / F ADM Date: 11/05/24 Loc: .MRI Attending Dr: Kimber Elmore CNM Ordering Physician: KIMBER ELMORE CNM Date of Service: 11/05/24 Procedure(s): MR pelvis wo/w con Accession Number(s): [id number] cc: KIMBER ELMORE CNM; SANKET CALIXTO NP~ CLINICAL HISTORY: abnormal uterine ultrasound, advised per radiology MR pelvis with and without gadolinium Comparison: Transvaginal pelvic ultrasound dated 0 10/31/2024. Findings: Anteverted uterus which demonstrate endometrial thickening measuring 1.6 cm with moderate amount of fluid within the endometrial cavity. No gestational sac is identified. Extensive dilated veins are noted surrounding the lower uterine segment is seen. Pelvic free fluid. A 2 cm thick wall cyst is noted within the right adnexa. IMPRESSION: Anteverted uterus with endometrial thickening measuring 1.6 cm with moderate fluid within the endometrial cavity. No gestational sac is identified. Short-term pelvic ultrasound with serial beta HCG is recommended for further evaluation. 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 A 2 cm cyst is noted within the right adnexa. This document has been electronically signed by: Pee Sánchez MD on 11/05/2024 19:22:22 Dictated By: Pee Sánchez MD Signed By: <Electronically signed by Pee Sánchez MD in OV> 11/05/241922 DD/ 21 TD/TT: 11/05/241921 Aperture Mask Etcher: Name: Marino Martin Age/Sex: 29/F Attending: KIMBER ELMORE CNM : 1995 Submitted by: KIMBER ELMORE CNM Copies to: MR #: [id number] Status: DEP REF Collected: 10/02/24 Location: [facility] Received: 10/03/24 Interpretation Satisfactory for evaluation. Negative for intraepithelial lesion or malignancy. No endocervical cells seen. HPV High Risk: Negative HPV Genotyping 16: Negative HPV Genotyping 18: Negative Clinical Information LMP: Unknown date Previous PAP test: 2020, WNL Material Received ThinPrep-Cervical Electronically Signed By: SAM Arevalo (ASCP) 10/16/24 0836 As of May 17, 2024, the technical services to include automated prescreening performed by the ThinPrep Imaging System, PAP screening and HPV testing will be performed at [facility] (CLIA #[id number]), [address] [place] [address]. Testing for HPV was performed using the Angel TERI 6800 system. The presence of HPV in the female genital tract is associated with a number of diseases, including cervical carcinoma. The HPV DNA high risk pool tests for HPV 31, 33, 35, 39, 45, 51, 52, 56, 58, 59, 66 and 68. The testing for HPV 16 and 18 genotypes has also been performed. A positive result indicates detection of nucleic acid sequences from one or more subtypes, whereas a negative result indicates such sequences were not detected. All professional services are performed by [facility] ([address] [place] [address]; ; CLIA #[id number]). The PAP Test is a screening procedure with the inherent possibility of both false negative and false positive results. Results should be interpreted in the context of historic and current clinical findings. Reliability of the PAP Test is enhanced by performing the test on a regular repetitive basis. Patient: Marino Martin Age/Sex: 29/F MR#: [id number] Page 1 of 1 Assessment & Plan Assessment & Plan (1) Ovarian cyst: Comment: Adnexal cysts seen on previous studies.... Code(s): N83.209 - Unspecified ovarian cyst, unspecified side Category: Medical (2) Menorrhagia with regular cycle: Comment: Thickened endometrial lining seen on previous studies. Patient has heavy regular cycles.... Code(s): N92.0 - Excessive and frequent menstruation with regular cycle Category: Medical (3) Hx of tubal ligation: Code(s): Z98.51 - Tubal ligation status Category: Surgical (4) H/O section: Code(s): Z98.891 - History of uterine scar from previous surgery Category: Surgical (5) Anemia: Comment: Hemoglobin 9.8 in April patient has been recommended to take iron but she isn't taking it discussed iron rich diet. Planning on Mirena IU S with next menses if ultrasound is within normal limits. Code(s): D64.9 - Anemia, unspecified Category: Medical Plan Patient is listed here as a visit for amenorrhea with regular cycles. She says she is being referred from the [facility] there were no referral records in the system in the place where referrals would be placed. She was seen in October and has been conversing with her provider at the [facility] by portal and she was seen because her periods have been very very heavy but they are very regular. she had a tubal ligation after the of her 3rd child, all 3 of her children were born by at [facility] there ages 12 12 and 6. She used a Mirena IUD between 2 of her children and did well with it until it b ecame uncomfortable and it then it was removed and she got . She actually thinks a Mirena IUD would be beneficial to her to help her with her periods and that is what she was seeking She said that she had an ultrasound that was done that showed a gestational sac but it was empty and the test was negative so then she had an MRI 5 days later which did not show anything but there was a thickened cyst that was seen. She said that she was waiting for this appointment and it get getting put off. Her periods continue to be regular they are not very long but they are very very heavy she thinks an IUD would help her she does not recall having any other negative side effects from the Mirena IUD when she had it. She did try the patch in October but did not like how she felt on it and she only used it for couple of months. She just had blood work done in April and was told she is a little bit anemic and was told to take iron but she has not actually been taking it.. Exam was benign. Cultures done in anticipation of probable placement of a Mirena I am requesting a pelvic ultrasound it turns out that her provider at the [facility] has already ordered a follow-up ultrasound for her that was ordered in May and that ultrasound is now going to be done in August according to the patient. I am requesting the ultrasound be done more urgently so that hopefully results can be in before the patient's next. And if the results are within normal limits patient and I have discussed placement of a Mirena IU S at the next menses she remembers that when they tried to insert a Mirena IUD when she did not have her menses it did not go in, and she needed to return with her menses (that was years ago between babies.) Orders: Orders CT NG by PCR Vag/Cerv Today N83.209 - Unspecified ovarian cyst, unspecified side, Z11.3 - Encounter for screening for infections with a predominantly sexual mode of transmission US pelvic and transvaginal Today N83.209 - Unspecified ovarian cyst, unspecified side Bacterial Vaginosis Panel Today N83.209 - Unspecified ovarian cyst, unspecified side, Z11.3 - Encounter for screening for infections with a predominantly sexual mode of transmission Medications: Discontinued sulfamethoxazole-trimethoprim 800-160 mg (Bactrim DS) Discontinued Reason: Patient no longer taking 1 tab PO BID 5 days 10 tabs 0RF Coding Level of Care Code New Pt Level 4 (27912) Diagnoses Ovarian cyst N83.209 Menorrhagia with regular cycle N92.0 Hx of tubal ligation Z98.51 H/O section Z98.891 Anemia D64.9
--- OUTSIDE RECORDS SUMMARY | 2025-07-24 13:09 | XMS_ITS | Encounter Summary ---
Author Organization [employer] Address [address] [place] [address] Care Team Providers Care Shorer Name Role Phone Eden Vallejo LONA Primary Care Provider [phone] Reason for Visit * Reason Onset Date Comments Results 05/21/2025 Encounter Details Date Type Department Care Team ([facility] st Contact Info) Description 05/21/2025 Results Follow-Up [facility] [address], [place] [phone] Kimber Sahni CNM [address] [place] [address] CBC, Iron And Total Iron Binding Capacity, Ferritin Social History Tobacco Use Types Packs/Day Years [...] encounter Miscellaneous Notes * Telephone Encounter - Rosemary Frazier RN - 05/21/2025 12:34 PM EDT TC placed to the pt to inform of Kimber Sahni's message below regarding pt lab results showing improved anemia. Pt was instructed to keep taking the prescribed iron supplementation every other day and that a refill on this medication was sent to the pharmacy. The pt stated that her associated appointment with [facility] keeps getting moved back due to staffing shortages. Currently the appointment is scheduled for June of 2025. The pt was given the number for the office to call to confirm. ----- Message from Kimber Sahni sent at 05/21/2025 11:37 AM EDT ----- Please let Marino know she is still anemic, but her anemia has improved. She should continue iron every other day. I will refill. I referred her to [facility] for further management a few months ago. Has she been seen there? Please assist with scheduling as needed. Thanks! ----- Message ----- From: Interface, Lab Results In Sent: 05/18/2025 11:58 AM EDT To: Kimber Sahni CNM * Result Encounter Note - Kimber Sahni CNM - 05/21/2025 11:37 AM EDT Please let Marino know she is still anemic, but her anemia has improved. She should continue iron every other day. I will refill. I referred her to [facility] for further management a few months ago. Has she been seen there? Please assist with scheduling as needed. Thanks! documented in this encounter Plan of Treatment Upcoming Encounters Date Type Department Care Team (Late st Contact Info) Description 10/03/2025 3:30 PM EDT Office Visit [facility] [address], [place] [phone] Kimber Sahni CNM [address] [place] [address] documented as of this encounter Visit Diagnoses Not on filedocumented in this encounter Care Teams Shorer Relationship Specialty Start Date End Date Eden Vallejo ANP [address] [place] [address] PCP - General Family Medicine 01/12/20 documented as of this encounter
--- OUTSIDE RECORDS SUMMARY | 2025-07-24 13:09 | XMS_ITS | Encounter Summary ---
Author Organization [employer] Address [address] [place] [address] [address] [place] [address] Care Team Providers Care Asset Protection Lead Name Role Phone Eden Vallejo Primary Care Provider [phone] Reason for Visit * Reason Comments Med Refill Encounter Details Date Type Department Care Team (Late st Contact Info) Description 02/13/2025 Refill [facility] [address] [place] [address] Kimber Sahni CNM [address] [place] [address] Social History Tobacco Use Types Packs/Day Years [...] Description 10/03/2025 3:30 PM EDT Office Visit [facility] [address] [place] [phone] Kimber Sahni CNM [address] [place] [address] documented as of this encounter Visit Diagnoses Not on filedocumented in this encounter Care Teams Asset Protection Lead Relationship Specialty Start Date End Date Eden Vallejo ANP [address] [place] [phone] PCP - General Family Medicine 01/12/20 documented as of this encounter
--- OUTSIDE RECORDS SUMMARY | 2025-07-24 13:09 | XMS_ITS | Clinical Summary ---
Author Organization [place] [address] Cherrie sosa Count Includes [facility] Building Address [address] [place] [phone] Phone Care Team Providers Care Coding Consultant Name Role Phone Physician, No Pcp Primary [...] this topic Insurance [employer] Care Teams Coding Consultant Relationship Specialty Start Date End Date Physician, No Pcp PCP - General 01/01/25
--- OUTSIDE RECORDS SUMMARY | 2025-07-24 13:09 | XMS_ITS | Encounter Summary ---
Author Organization [employer] Address [address] [place] [address] [address] [place] [address] Care Team Providers Care Health Occupations Teacher Name Role Phone Eden Vallejo Primary Care Provider [phone] Reason for Visit * Reason Onset Date Comments Appointment Request 08/25/2024 Encounter Details Date Type Department Care Team (Late st Contact Info) Description 08/25/[address] [phone] Eden Vallejo ANP [address] [place] [phone] Appointment Request Social History Tobacco Use Types [...] for PAP smear with Kaitlyn. PT Contact: [phone] documented in this encounter Plan of Treatment Upcoming Encounters Date Type Department Care Team (Late Contact Info) Description 10/03/2025 3:30 PM EDT Office Visit [facility] [address] [place] [address] Kimber Sahni CNM [address] [place], [place] [phone] documented as of this encounter Visit Diagnoses Not on filedocumented in this encounter Care Teams Health Occupations Teacher Relationship Specialty Start Date End Date Eden Vallejo ANP [address] [place], [place] [phone] PCP - General Family Medicine 01/12/20 documented as of this encounter
--- OUTSIDE RECORDS SUMMARY | 2025-07-24 13:09 | XMS_ITS | Clinical Summary ---
Author Organization [employer] Address [address] [place] [address] [address] [place] [address] Care Team Providers Care Structurer Name Role Phone Eden Vallejo LONA Primary Care Provider [phone] Allergies Active Allergy Reactions Criticality Noted Date Comments Promethazine 10/21/2016 Medications albuterol 108 (90 Base) MCG/ACT inhaler Inhale 2 puffs every 4 (four) hours. 07/03/2020 Active cholecalciferol (Vitamin D-3) 1.25 MG (43105 UT) capsule Take 1 capsule once per week for 8-12 weeks 01/31/2020 Active ferrous sulfate 325 (65 Fe) MG tablet Take 1 tablet (325 mg) by mouth every other day. 30 tablet 05/21/2025 Active norelgestromin- ethinyl estradiol (Ortho-Evra) 150-35 MCG/24HR APPLY 1 PATCH EACH WEEK FOR 3 WEEKS, THEN HAVE NO PATCH FOR 1 WEEK. REPEAT 9 patch 06/11/2025 Active Active Problems No known active problems Encounters Date Type Department Care Team Description 07/13/2025 Telephone [facility] [address] [place], [place] [phone] Darcy Gonzalez MA 06/11/2025 Orders Only [facility] MEDICINE [address] [place], [place] [phone] Rodrigue Elmore CNM Abnormal endometrial ultrasound (Primary Dx) 06/10/2025 Refill [facility] MED[facility] [address] [place], [place] [phone] Mis Salazar MD 05/21/2025 Orders Only [facility] MEDICINE [address] [place], [place] [phone] Rodrigue Elmore CNM 05/21/2025 Results Follow-Up [facility] [address] [facility] [place] [address] Rodrigue Elmore CNM CBC, Iron And Total Iron Binding Capacity, Ferritin from Last 3 Months Immunizations Immunization Administration Dates Next Due DTaP 03/27/1995, 4,1993,07/29,1993 HPV, Quadrivalent 04/12/2014,08/16/2009 Hep B, Adolescent or Pediatric 1993,1993,1993 Hep B, adult 11/25/2018,06/24/2018,05/24/2018 Hib ([facility]) 06/26/1994, 4,1993,05/27 IPV 03/27/1995, 4,1993,05/27 Influenza injectable [...] Description 10/03/2025 3:30 PM EDT Office Visit [facility] MEDICINE [address] [place] [phone] Rodrigue Elmore, [facility] [address] [place] [address] Health Maintenance Due Date Last Done Comments Depression Screening 1993 SDOH Screening 1993 Disability Screening 1993 Alcohol/Substance Use Screening 2005 HPV Vaccines (3 - 3-dose series) 07/05/2014 04/12/2014, 08/16/2009 COVID-19 Vaccine (2024- season) 2025 07/07/2021, 06/09/2021 Influenza Vaccine (#1) [...] Priority Date/Time Associated Diagnosis Comments FERRITIN Routine 05/18/2025 9:31 AM EDT Other iron deficiency anemia IRON AND TOTAL IRON BINDING CAPACITY Routine 05/18/2025 9:31 AM EDT Other iron deficiency anemia CBC Routine 05/18/2025 9:31 AM EDT Other iron deficiency anemia CREATININE, SERUM Routine 05/18/2025 9:3 1 AM EDT Pre-procedure lab exam UREA NITROGEN (BUN) Routine 05/18/2025 9 :31 AM EDT Pre-procedure lab exam HPV DNA, LOW/HIGH RISK Routine 10/02/2024 1:29 PM EDT PAP SMEAR Routine 10/02/2024 1:29 PM EDT Cervical cancer screening ZZZ HISTORICAL HEPATITIS C AB W/REFL TO HCV RNA, QN, PCR Routine 09/17/2021 11:35 AM EST HIV 1/2 ANTIGEN/ANTIBODY, FOURTH GENERATION W/RFL Routine 09/17/2021 11:35 AM EST from Last 3 Months or Most Recently Relevant to Health Maintenance Results * Creatinine, Serum (05/18/2025 9:31 AM EDT) Creatinine, Serum 0.78 0.5 - 1.4 mg/dL [facility] Estimated Glomerular Filt Rate >60 [facility] Comment:Chronic Kidney Disea se: Estimated GFR < 60 mL/min/1.87p3Szkflt Kidney Disease: Estimated GFR < 15 mL/min/1.73m2 Blood Venous blood specimen / Unknown 05/18/2025 9:31 AM EDT 05/18/2025 11:20 AM EDT us Rodrigue Elmore [facility] BLOOD ORDERABLES Maritza l Result [facility] [address] [place] [phone] * Iron And Total Iron Binding Capacity (05/18/2025 9:31 AM EDT) Iron 60 30 - 160 mcg/dL [facility] Total Iron Binding Capacity 402 228 - 428 mcg/dL [facility] Percent Iron Saturation 15 15 - 50 % [facility] Unsaturated Iron Binding 342 ug/dL [facility] Blood Venous blood specimen / Unknown 05/18/2025 9:31 AM EDT 05/18/2025 11:20 AM EDT Rodriguebrennan Elmore [facility] BLOOD ORDERABLES Maritza l Result Performing Organization Address City/[facility]/ZIP Co de Phone Number [facility] [address] [place] [phone] * (ABNORMAL) CBC (05/18/2025 9:31 AM EDT) White Blood Count 5.4 4.8 - 10.8 X10*3/uL [facility] Red Blood Count 4.47 4.20 - 5.50 X10*6/uL [facility] Hemoglobin 9.8(L) 12.0 - 16.0 g/dl [facility] Hematocrit 33.2(L) 37.0 - 47.0 % [facility] Mean Corpuscular Volume 74.3(L) 80.0 - 98.0 fL [facility] Mean Corpuscular Hemoglobin 21.9(L) 27.0 - 33.0 pg [facility] Mean Corpuscular HGB Conc 29.5(L) 31.0 - 35.0 g/dl [facility] Red Cell Distribution Width 16.1(H) 11.0 - 16.0 % [facility] Platelet Count 286 160 - 400 X10*3/uL [facility] Mean Platelet Volume 10.2 9.4 - 12.3 fL [facility] NRBC Pct Auto 0.0 0.0 - 0.2 /100WBC [facility] NRBC Abs Auto 0.000 0.0 - 0.012 X10*3/uL [facility] Blood Venous blood specimen / Unknown 05/18/2025 9:31 AM EDT 05/18/2025 11:36 AM EDT Rodrigue Elmore [facility] BLOOD ORDERABLES Maritza l Result [facility] [address] [place] [phone] * BUN (Blood Urea Nitrogen) (05/18/2025 9:31 AM EDT) Urea Nitrogen (BUN) 9 9 - 16 mg/dL [facility] Blood Venous blood specimen / Unknown 05/18/2025 9:31 AM EDT 05/18/2025 11:[address] [facility] Maritza l Result [facility] [address] [place] [phone] * (ABNORMAL) Ferritin (05/18/2025 9:31 AM EDT) Ferritin 8(L) 10 - 122 ng/mL [facility] Blood Venous blood specimen / Unknown 05/18/2025 9:31 AM EDT 05/18/2025 11:20 AM EDT [facility] LAB BLOOD ORDERABLES Maritza l Result Performing Organization Address City/[facility] Co de Phone Number [facility] [address] [place] [phone] * HPV DNA, Low/High Risk (10/02/2024 1:29 PM EDT) HPV High Risk Negative Negative [facility] HPV Genotype 16 Negative Negative [facility] HPV Genotype 18 Negative Negative [facility] Comment:HPV testing performe d at [facility] (CLIA#[id number]), [address] [place] [address].Testing for HPV was performed using the Angel [...] EDT 10/03/2024 9:30 AM EDT Rodrigue Elmore CNM LAB BLOOD ORDERABLES Maritza ian Result [facility] [address] [place] [address] [phone] * Pap Smear (10/02/2024 1:29 PM EDT) Swab Cervix uteri structure / Unknown 10/02/2024 1:29 PM EDT 10/03/2024 9:30 AM EDT Narrative [facility] - 10/16/2024 8:36 AM EDT ----- ------- Name: Marino Martin Age/Sex: 29/F : 1995 Unit#: [id number] Attend Dr: RODRIGUE ELMORE CNM Re10/02/24 Status: DEP REF Location: HO.HHCLNP Disch: ----- ------- SPEC : [id number] RECD: 10/03/24 STATUS: MATTEO BOTELLO NUM: [id number] MOHINI: 10/02/241329 [facility] DR: RODRIGUE ELMORE CNM ENTERED: 10/03/24 SP [...] 10/16/24 0836 ----- ------- END OF REPORT us Rodrigue [facility] CYTOLOGY ORDERABLES F inal Result [facility] [address] [place] [phone] * HEPATITIS C AB W/REFL TO HCV RNA, QN, PCR (09/17/2021 11:35 AM EST) HEPATITIS C ANTIBODY NON-REACT JOAO NON-REACT JOAO [facility] INDEX 0.03 <1.00 [facility] Comment: HCV antibody was non-reactive. There is no laboratory evidence of HCV infection. In most cases, no further action is required. However, if recent HCV exposure is suspected, a test for HCV RNA (test code 41309) is suggested. For additional information please refer to [email or web address]/[email or web address] (This link is being provided for informational/ educational purposes only.) 09/17/2021 11:3 5 AM EST Pallavi MORALESP HISTORICAL/NON ORDERABLE LABS Final Result Performing Organization Address [facility] Phone Number [facility] [address] * HIV 1/2 ANTIGEN/ANTIBODY,FOURTH GENERATION W/RFL [...] purpose. For additional information please refer to http://[email or web address]/MNB668 (This link is being provided for informational/ educational purposes only.) The performance of this assay has not been clinically validated in patients less than 2 years old. 09/17/2021 11:3 5 AM EST Pallavi Hu [facility] LAB BLOOD ORDERABLES Final Res ult Performing Organization Address [facility] Phone Number [facility] [address] from Last 3 Months or Most Recently Relevant to Health Maintenance Insurance [employer] Care Teams Structurer Relationship Specialty Start Date End Date Eden Vallejo ANP [address] [place] [phone] PCP - General Family Medicine 01/12/20
--- OUTSIDE RECORDS SUMMARY | 2025-07-24 13:09 | XMS_ITS | Encounter Summary ---
Author Organization [employer] Address [address] [place] [address] 7 [place] [address] Care Team Providers Care Sandfill Operator Name Role Phone Eden Vallejo Primary Care Provider [phone] Reason for Visit * Reason Comments Med Refill Encounter Details Date Type Department Care Team (Late st Contact Info) Description 04/17/2025 Refill [facility] [address] [place] [address] Kimber Sahni CNM [address] [place] [address] Social History Tobacco Use Types Packs/Day Years [...] EDT Office Visit [facility] [address] [place] [phone] Kimber Sahni CNM [address] [place] [address] documented as of this encounter Visit Diagnoses Not on filedocumented in this encounter Care Teams Sandfill Operator Relationship Specialty Start Date End Date Eden Vallejo ANP [address] [place] [phone] PCP - General Family Medicine 01/12/20 documented as of this encounter
== END 2025-07-24 13:05 | disposition home or self-care (01) ==
LOC: HO.HWS 10:02
PROVIDERS: PCP Nurse Practitioner Primary Care; Visit Provider Advanced Practice Midwife
DX: N83.209 Unspecified ovarian cyst, unspecified side (principal); N92.0 Excessive and frequent menstruation with regular cycle; Z98.51 Tubal ligation status; Z98.891 History of uterine scar from previous surgery; D64.9 Anemia, unspecified
CPT/HCPCS: 99204